=== PATIENT | female | born 1950 | race Caucasian/White ===

== ENCOUNTER 2021-04-09 09:26 | Outpatient (CLI) | payer MEDICARE, SELFPAY ==
--- NOTE | ~2021-04-09 | XR_ITS ---
EXAMINATION: XR knee LT min 4V DATE: 04/09/2021 10:37 INDICATION: Left knee pain TECHNIQUE: Four views of the left knee were obtained. COMPARISON: None. FINDINGS: Alignment is normal. No fracture or osteochondral lesion. There is tricompartmental osteoar thritis, severe in the medial compartment, moderate in the patellofemoral compartment, and mild in th e lateral compartment. No joint effusion/synovitis. Calcified atherosclerosis is noted. IMPRESSION: 1. Tricompartmental osteoarthritis without acute findings. Reviewed, dictated and finalized at location A.
== END 2021-04-09 09:27 | disposition home or self-care (01) ==
LOC: CHSIMG 09:30
PROVIDERS: PCP Family Medicine; Visit Provider Orthopaedic Surgery
DX: M25.562 Pain in left knee (principal); M17.12 Unilateral primary osteoarthritis, left knee
CPT/HCPCS: 73564

== ENCOUNTER 2021-06-28 11:18 | Outpatient (CLI) | payer MEDICARE, SELFPAY ==
--- NOTE | 2021-06-28 12:21 | ECG_ITS ---
Measurements Intervals [place] Rate: 56 P: -25 AR: 182 QRS: 6 QRSD: 108 T: 46 QT: 435 QTc: 423 Interpretive Statements SINUS BRADYCARDIA POOR R WAVE PROGRESSION, ANTERIOR LEADS BASELINE ARTIFACT- I, II, III, AVR, AVL, AVF, V1 BORDERLINE ECG Electronically Signed On 06-28-2021 12:48:54 MARKET REPORTER by Jesus Gee D.O.
[2021-06-28 12:46] LABS: Basophils Percent Auto 0.5 % (0.2-1.2); Eosinophils Percent Auto 0.7 % (0-4.4); Hematocrit 41.8 % (37.0-47.0); Hemoglobin 13.7 g/dL (12.0-15.0); Immature Granulocyte Absolute 0.01 K/mm3 (0.00-0.031); Immature Granulocyte Percent A 0.2 % (0-0.5); Lymphocytes Absolute Auto 2.71 K/mm3 (0.9-3.2); Mean Corpuscular HGB Conc 32.8 g/dl (32-36); Mean Corpuscular Hemoglobin 30.2 pg (26-34); Mean Corpuscular Volume 92.1 fl (80-100); Mean Platelet Volume 9.8 fl (7.4-10.4); Monocytes Absolute Auto 0.5 K/mm3 (0.1-0.6); Monocytes Percent Auto 8.2 % (2.6-8.5); Neutrophils Absolute Auto 2.5 K/mm3 (1.3-6.7); Neutrophils Percent Auto 43.4 % (45.5-73.1); Platelet Count Result 188 k/mm3 (150-375); Red Blood Count 4.54 M/mm3 (4.2-5.4); Red Cell Distribution Width 13.2 % (11.5-14.5); White Blood Count 5.8 K/mm3 (4.5-10.0)
[2021-06-28 12:54] LABS: Urine Cotinine NEGATIVE
[2021-06-28 12:55] LABS: Add Urine Microscopic? YES; Appearance Urine Clear (Clear); Bacteria Urine Trace /hpf; Bilirubin Urine Negative (Negative); Blood Urine Negative (Negative); Color Urine Yellow (Yellow); Glucose Urine UA Negative (Negative); Ketones Urine Negative (Negative); Leukocyte Esterase Ur Negative LEU/UL (Negative); Mucus Urine Rare /lpf; Nitrate Urine Negative (Negative); Protein Urine Negative (Negative); RBC Urine 0-2 /hpf (0-2); Specific Grav Ur 1.011 (1.001-1.035); Squamous Epithelial Cell Urine Rare /hpf (Few); Urobilinogen Urine Negative mg/dL (<2.0); WBC Urine 0-3 /hpf
[2021-06-28 12:59] LABS: Albumin Level 4.7 g/dL (3.5-5.1); Anion Gap 11 mmol/L (8-16); Blood Urea Nitrogen 15 mg/dL (7-17); Calcium 9.5 mg/dL (8.4-10.2); Carbon Dioxide 27 mmol/L (22-30); Chloride 99 mmol/L (98-107); Estimated Glomerular Filt Rate > 60; Glucose 101 mg/dL (65-110); Potassium 4.2 mmol/L (3.4-5.0); Prothrombin Time 13.1 Seconds (11.1-14.7); Sodium 137 mmol/L (137-145)
[2021-06-28 13:00] LABS: Partial Thromboplastin Time 25.4 SECONDS (22.3-36.8)
[2021-06-28 13:10] LABS: Hemoglobin A1C 6.2 % (<5.7)
== END 2021-06-28 11:19 | disposition home or self-care (01) ==
PROVIDERS: PCP Family Medicine; Visit Provider Orthopaedic Surgery
DX: Z01.818 Encounter for other preprocedural examination (principal); M17.12 Unilateral primary osteoarthritis, left knee; R00.1 Bradycardia, unspecified; Z51.81 Encounter for therapeutic drug level monitoring; Z79.899 Other long term (current) drug therapy
CPT/HCPCS: 80048; 80307; 81001; 82040; 83036; 85025; 85610; 85730; 87081; 93005

== ENCOUNTER 2021-07-31 01:16 | Day surgery (SDC) | payer MEDICARE, SELFPAY ==
[2021-06-28 11:39] VITALS: BMI 31.1
--- NOTE | 2021-06-28 11:59 | PC.NURSE ---
Report to the Outpatient Waiting Room, entrance under the green pavilion located off [facility], at time _0830 on date _07/17/21 . OR Time: __0___. - You and your visitor will be asked a series of questions to screen for COVID 19 for your protection. - A mask is required within the hospital. - Only one visitor is allowed at this time. Patient visitors will be guided where to wait when not with patient. Preoperative COVID Testing Requirements: No COVID Test needed if: (proof is required; if not received patient will have Rapid Test prior to entry) - Patient has received COVID Vaccine at least 14 days prior to procedure date or - Patient has positive COVID test result within last 90 days of surgery date. COVID Test needed if above criteria is not met If not COVID vaccinated a COVID test must be conducted within 72 hours of surgery and patient is asked to isolate self from time of testing until procedure. You will go to the [employer] [facility] Testing Site for your COVID testing. The [employer] [facility] Testing site is located at the corner of [address] [facility]. You will only be called if COVID results are positive and your surgeon may reschedule your elective surgery date. Patients may have clear liquids (water, carbonated beverages, clear teas, apple juice) until 3 hours prior to surgery with a maximum of 20 ounces. - No food from midnight until time of surgery - Infants may have breast milk until 4 hours before surgery, formula 6 hours prior to surgery. - Children will be allowed to drink immediately following surgery. If applicable, please bring a bottle or sippy cup to assist with drinking. Juice, water, soda, and popsicles are readily available. For infants on formula, please bring formula the day of surgery. Pacifiers are allowed. Take the following medications with a SIP of water the morning of surgery: _CITALOPRAM Medications to discontinue per physician __PT STATES ASPIRIN 7 DAYS PRE OP PER DR HADLEY, ALL VITAMINS AND SUPPLEMENTS 3 DAYS PRE OP Date to take last dose__ASPIRIN 07/09/21,VITAMINS 07/13/21 Please no make-up, nail georgian, hairspray, perfume, deodorant, or body powder the day of surgery. No jewelry (including any body piercings) or valuables the day of surgery, leave them at home. Please take a shower or bath the night before, or the morning of, surgery with an antibacterial soap. Wear comfortable, loose fitting clothing. Children are encouraged to wear pajamas. - Jewelry must be removed prior to entering the operating room. Rings and piercings that are not removed may be cut off. - The hospital will not accept responsibility for valuables. - Please leave all valuables, including medications, at home the day of surgery. If you are going home after surgery, a licensed mechanic driver must drive you home. - NO public transportation without another adult. - We recommend that an adult stay with you for 24 hours following discharge. - We also recommend that you do not drive, make important decision, drink alcoholic beverages, or take any drugs that were not prescribed by your health care provider for at least 24 hours after your discharge time. Follow any additional instructions given to you from your surgeon. Telephone instructions given to _PATIENT AND SPOUSE and asked if any additional questions and then verbalized understanding. Patient advised to call surgeon office or pre surgery nurse liaison [phone] if any additional questions.
[2021-06-28 12:17] VITALS: BP 136/78; PULSE 65; RESP 16; TEMP 37.1; O2SAT 97
--- NOTE | 2021-07-24 12:47 | PC.NURSE ---
Report to the Outpatient Waiting Room, entrance under the green pavilion located off [facility], at time _0900 on date __07/31/21 . OR Time: _1100 . - You will be asked a series of questions to screen for COVID 19 for your protection. - A mask is required within the hospital. - No visitors are allowed at this time. Preoperative COVID Testing Requirements: No COVID Test needed if: (proof is required; if not received patient will have Rapid Test prior to entry) - Patient has received COVID Vaccine at least 14 days prior to procedure date or - Patient has positive COVID test result within last 90 days of surgery date. COVID Test needed if above criteria is not met If not COVID vaccinated a COVID test must be conducted within 72 hours of surgery and patient is asked to isolate self from time of testing until procedure. You will go to the [employer] Testing Site for your COVID testing. The [facility] Testing site is located at the corner of [address] [facility]. You will only be called if COVID results are positive and your surgeon may reschedule your elective surgery date. Patients may have clear liquids (water, carbonated beverages, clear teas, apple juice) until 3 hours prior to surgery with a maximum of 20 ounces. - No food from midnight until time of surgery (8:00 AM) - Take the following medications with a SIP of water the morning of surgery: ___CITALOPRAM Medications to discontinue per physician ____ASPIRIN PER DR JORGENSEN, ALL VITAMINS AND SUPPLEMENTS 3 DAYS PRE OP Date to take last dose___07/27/21 Please no make-up, nail greenlandic, hairspray, perfume, deodorant, or body powder the day of surgery. No jewelry (including any body piercings) or valuables the day of surgery, leave them at home. Please take a shower or bath the night before, or the morning of, surgery with an antibacterial soap. Wear comfortable, loose fitting clothing. Children are encouraged to wear pajamas. - Jewelry must be removed prior to entering the operating room. Rings and piercings that are not removed may be cut off. - The hospital will not accept responsibility for valuables. - Please leave all valuables, including medications, at home the day of surgery. If you are going home after surgery, a licensed stage driver must drive you home. - NO public transportation without another adult. - We recommend that an adult stay with you for 24 hours following discharge. - We also recommend that you do not drive, make important decision, drink alcoholic beverages, or take any drugs that were not prescribed by your health care provider for at least 24 hours after your discharge time. For Pediatric surgeries, we recommend two adults accompany the child home (only one inside the building at this time). Follow any additional instructions given to you from your surgeon. Telephone instructions given to __PT and asked if any additional questions and then verbalized understanding. Patient advised to call surgeon office or pre surgery nurse liaison [phone] if any additional questions.
--- NOTE | 2021-07-24 12:49 | PC.NURSE ---
PT STATES NO CHANGE IN HEALTH HX SINCE LAST INTERVIEW ON 06/28/21
--- NOTE | 2021-07-29 09:48 | PM.IMHP ---
H&P: HPI History of Present Illness Date/Time: 07/29/21 09:48 Pt presents with Lt knee pain. Her pain is located at the lateral aspect of the left knee and occurs with weightbearing and the patella region. She takes Tylenol, on occasion. She has not had any previous injuries to Lt knee. She states she had a previous right knee arthroscopy. Pt underwent a Right knee arthroscopy, approx 10 yrs ago. Involved knee: bilateral Onset: gradual Location of pain: medial, lateral and anterior Pain scale (0-10): 9 Character: stabbing, throbbing and shooting Timing of pain: intermittent Exacerbated by: weight bearing, kneeling, squatting, stairs, running and rotational activities Relieved by: Tylenol, ice and rest Associated symptoms: Reports swelling, instability and stiffness History of occupational/recreational activity with repetitive motion: No History of prior knee injury: No Chief Complaint: LEFT KNEE PAIN Review of Systems Review of Systems: All systems reviewed & are unremarkable except as noted in HPI and below Eyes: Eyes: Reports no additional eye complaints ENT: Reports system reviewed and no additional complaints, except as documented Respiratory: Respiratory: Reports no additional respiratory complaints Genitourinary: Genitourinary: Reports no additional female genitourinary complaints Integumentary/Breasts: Skin/Breast: Reports system reviewed and no additional complaints, except as docu Neurologic: Reports system reviewed and no additional complaints, except as documented PMFSH Past Medical History Medical History Anxiety Arthritis Burning tongue Congestion of throat Dementia Globus sensation Left knee DJD Left knee pain PND (post-nasal drip) Right knee DJD Right knee pain Throat clearing Throat pain Family History Family History Grandparent Lung cancer Heart disease Social History Social History Additional smoking assessment comments: DENIES ANY FORM OF TOBACCO USE Alcohol intake: never Substance use: never Spiritual care concerns: No Meds Home Medications and Allergies Home Medications Medication Instructions Recorded Confirmed Type citalopram 40 mg tablet 20 mg PO DAILY 02/27/21 07/24/21 History donepezil 10 mg tablet 10 mg PO QNOON 02/27/21 07/24/21 History fluticasone propionate 50 2 spray INTRANASAL BID #16 ml 02/27/21 07/24/21 Rx mcg/actuation nasal spray,suspension rosuvastatin 40 mg tablet 40 mg PO DAILY 02/27/21 07/24/21 History aspirin [Adult Low Dose Aspirin] 81 mg PO DAILY 06/28/21 07/24/21 History cholecalciferol (vitamin D3) 50 mcg PO DAILY 06/28/21 07/24/21 History cyanocobalamin (vitamin B-12) 1,000 mcg PO DAILY 06/28/21 07/24/21 History yt-aar-rgrfi-calcium carb-K1 1 tablet PO DAILY 06/28/21 07/24/21 History [One-A-Day Women's 50 Plus] Allergies Allergy/AdvReac Type Severity Reaction Status Date / Time No Known Allergies Allergy Verified 06/28/21 11:39 Exam Extrem: Other: Exam Const Constitutional General: cooperative Nutritional Appearance: average body habitus Orientation/consciousness: patient oriented x3 Constitutional Limitations: no limitations HENMT Head: normal to inspection Ears: hearing grossly normal bilaterally General nose exam: Normal external nose present Face and sinus: normal facial exam Mouth: moist mucous membranes Teeth and gingiva: dentition normal Eyes General: appearance normal, both eyes and all related structures Pupils: Yes Equal, round and reactive pupils present EOM: EOMs intact bilaterally Neck Neck: Yes normal visual inspection Chest Chest palpation & inspection: normal inspection of the chest Resp Effort & Inspection: normal respiratory effort and able to speak in complete sentences Cardio Jugular venous distension: no JVD Neuro Cranial nerve
--- NOTE | 2021-07-30 16:14 | WPDANESEPPF ---
Anes - Initial Pre Proc Eval Procedure: Operation Date: 07/31/21 11:00 Proposed Procedures p Left Total Knee Arthroplasty - Cody Martinez MD Date/Time: 07/30/21 16:14 Surgeon: Cody Martinez MD Pre Op Diagnosis: left knee DJD Patient Data Age: 71 Gender: F Height: 1.73 m Weight: 92.9 kg Last Vital Signs Temp 37.1 C 06/28/21 12:17 Pulse 65 06/28/21 12:17 Resp 16 06/28/21 12:17 BP 136/78 06/28/21 12:17 Pulse Ox 97 06/28/21 12:17 Allergies Allergy/AdvReac Type Severity Reaction Status Date / Time No Known Allergies Allergy Verified 06/28/21 11:39 Home Medications Medication Instructions Recorded Confirmed Type citalopram 40 mg tablet 20 mg PO DAILY 02/27/21 07/24/21 History donepezil 10 mg tablet 10 mg PO QNOON 02/27/21 07/24/21 History fluticasone propionate 50 2 spray INTRANASAL BID #16 ml 02/27/21 07/24/21 Rx mcg/actuation nasal spray,suspension rosuvastatin 40 mg tablet 40 mg PO DAILY 02/27/21 07/24/21 History aspirin [Adult Low Dose Aspirin] 81 mg PO DAILY 06/28/21 07/24/21 History cholecalciferol (vitamin D3) 50 mcg PO DAILY 06/28/21 07/24/21 History cyanocobalamin (vitamin B-12) 1,000 mcg PO DAILY 06/28/21 07/24/21 History xn-odq-jexic-calcium carb-K1 1 tablet PO DAILY 06/28/21 07/24/21 History [One-A-Day Women's 50 Plus] Patient hx anesthesia problems: none Family hx anesthesia problems: none Results Review: All pre-operative results and documents have been reviewed as part of the pre-operative evaluation. [facility] Past Medical History Medical History (Updated 07/30/21 @ 16:15 by Tucker Ojeda MD) Anxiety Arthritis Burning tongue Congestion of throat Dementia Globus sensation Hyperlipidemia Left knee DJD Left knee pain Obesity PND (post-nasal drip) Right knee DJD Right knee pain Throat clearing Throat pain Family History Family History Grandparent Lung cancer Heart disease Social History Social History Additional smoking assessment comments: DENIES ANY FORM OF TOBACCO USE Alcohol intake: never Substance use: never Living arrangements: with family Spiritual care concerns: No Anes - Eval Final PreProcedure Day of Procedure 07/30/21 16:14 Patient weight: obese Heart: regular rate and rhythm Lungs: clear to auscultation and normal air movement Airway: Mallampati scale class II Neurological: alert and oriented Last oral intake: >/= 8 hours ASA classification: III Emergent: no Anesthetic plan: proceed Anesthesia type and monitoring: general LMA Results Review: All pre-operative results and documents have been reviewed as part of the pre-operative evaluation. Informed Consent: The patient's anesthetic plan and its attendant risks and benefits were discussed with the patient/family/POA. Questions were solicited and answers provided to the satisfaction of the patient/family/POA.
--- NOTE | 2021-07-30 16:15 | WPDANESPNB ---
Anes - Peripheral Nerve Block Date/Time: 07/30/21 16:15 I have discussed with the patient/family/POA the placement of a peripheral nerve block for post-operative pain management, including associated risks, benefits, complications, and side effects. Alternative methods of post-operative analgesia were detailed. Questions were solicited and answers provided to the satisfaction of the patient/family/POA. Time-Out: A pre-procedural Time-Out was completed immediately before starting the procedure and confirmed: Patient Identification, Site, Procedure, Patient Position and the Availability of Requisite Equipment. Clinical Indications: Acute post-operative pain management requested by the operative surgeon. Nerve Block Insertion Note Anes-nerve block: adductor canal left Patient position: supine Skin prep: chlorhexidine Needle: 22 gauge, stimulating, insulated echogenic needle. Needle length: 80 mm Technique: ultrasound Technique comment: in plane Injectate: bupivacaine 0.5% with epi 5 mcg/ml (30cc) Observations: tolerated well Complications: none Procedure start time:: 1210 Procedure end time:: 121
[2021-07-31] VITALS (15 sets, daily range): BP systolic 111–190; BP diastolic 48–87; PULSE 63–87; RESP 12–18; TEMP 36.3–37.4; O2SAT 87–100; BMI 31.1
--- NOTE | ~2021-07-31 | XR_ITS ---
EXAMINATION: XR knee LT 2V DATE: 07/31/2021 15:01 INDICATION: Postoperative evaluation following left total knee arthroplasty. TECHNIQUE: Anteroposterior and lateral views of the left knee were obtained. COMPARISON: 06/10/2021 FINDINGS: Left total knee arthroplasty without patellar resurfacing appears well seated and in near anatomic al ignment. No fractures identified. Expected postoperative subcutaneous and intra-articular gas. IMPRESSION: 1. Left total knee arthroplasty, negative for postoperative purposes. Reviewed, dictated and finalized at location A. DOWN FURNACE OPERATOR
--- NOTE | 2021-07-31 07:33 | WPDHPUPDATE1 ---
History and Physical Update Update Date/Time: 07/31/21 07:33 History and Physical has been reviewed, including an updated exam of the patient. There are NO changes in the patient's condition. Risks, benefits, and alternatives have been discussed and questions answered. Patient agrees to proceed with procedure.
[2021-07-31] MEDS: LACTATED RINGERS 1,000 ML 30 ML IV CONT ×2 (09:44→14:48)
[2021-07-31] MEDS: ACETAMINOPHEN 500 MG TABLET 1000 MG PO (09:44)
[2021-07-31] MEDS: TRANEXAMIC ACID 1,000MG/ISO100 1,000 MG/100 ML BAG 200 MG IVPB (09:45)
--- NOTE | 2021-07-31 10:40 | SUR.PREOP ---
pt and spouse updated on delay, approx 1 hour behind.
[2021-07-31] MEDS: ceFAZolin 2 GM/D5W 50 ML 2 GM/50 ML BAG IVPB ×2 (12:22→20:21)
[2021-07-31] MEDS: TRANEXAMIC ACID 1,000 MG/10 ML AMPUL 1000 MG IV PUSH (13:59)
--- NOTE | 2021-07-31 14:45 | W.PM.PROC2 ---
Procedure Note - Detailed Date of Procedure 07/31/21 Pre-op Diagnosis left knee DJD Post-op Diagnosis same Procedure Performed L TKA Surgeon Cody Martinez MD Anesthesia general Description of Procedure THE LEFT KNEE WAS PREPPED AND DRAPED IN THE STERILE FASHION. A MIDLINE SKIN INCISION WAS MADE. A MEDIAL PARAPATELLAR ARTHROTOMY WAS MADE. THE PATELLA WAS EVERTED. THERE WAS TRICOMPARTMENT DJD. THERE WAS MINIMAL PATELLA DJD. AN INTRAMEDULLARY BLAYNE WAS PLACED IN THE FEMUR. A DISTAL FEMORAL CUT WAS MADE IN 5 DEGREES OF VALGUS REMOVING APPROXIMATELY 11 MM OF BONE FROM THE DISTAL FEMUR. THE FEMUR WAS SIZED TO 62.5. A 62.5 FEMORAL CUTTING BLOCK WAS PLACED IN 3 DEGREES OF EXTERNAL ROTATION AND IN ALIGNMENT WITH FRANSISCO'S LINE AND THE TRANSEPICONDYLAR AXIS. ANTERIOR POSTERIOR AND CHAMFER CUTS WERE MADE. THE CUTS WERE EXCELLENT. NEXT AN INTRAMEDULLARY CUTTING GUIDE WAS PLACED IN THE TIBIA. A TRANS TIBIAL CUT WAS MADE ALONG THE LONG AXIS OF THE TIBIA. APPROXIMATELY 10 MM OF BONE WAS REMOVED FROM THE HIGH SIDE OF THE TIBIA. THE TIBIA WAS THEN PLANED TO A SMOOTH SURFACE. POSTERIOR FEMORAL OSTEOPHYTES WERE REMOVED FROM THE FEMORAL CONDYLES. A 71 TIBIAL TRIAL WAS PLACED IN ALIGNMENT WITH THE 1/3 MEDIAL ASPECT OF THE TIBIAL TUBERCLE. THEN A 62.5 FEMORAL TRIAL COMPONENT WAS PLACED. BOTH HAD EXCELLENT FITS. EVENTUALLY A 10 MM CR POLYETHYLENE TRIAL COMPONENT WAS PLACED. THE KNEE WAS TAKEN THROUGH A RANGE OF MOTION. THE KNEE CAME OUT TO FULL EXTENSION. THERE WAS NO ABNORMAL TILT TO THE PATELLA. THERE WAS GOOD A/P AND VARUS/VALGUS STABILITY. THERE WAS NO EXCESSIVE ROLL BACK WITH FLEXION. THE TRIAL COMPONENTS WERE REMOVED. THEN A 62.5 FEMORAL COMPONENT AND 71 TIBIAL COMPONENT WITH A 10 CR POLYETHYLENE COMPONENT WERE CEMENTED INTO PLACE. ONCE THE CEMENT WAS HARD THE KNEE WAS TAKEN THROUGH A ROM AGAIN AND FOUND TO BE STABLE WITH NO PATELLA TILT NO EXCESSIVE ROLL BACK WITH FLEXION AND GOOD STABILITY WITH COMPLETE AND FULL EXTENSION. THE KNEE WAS IRRIGATED WITH STERILE BETADINE AND WATER FOR ABOUT 3 MINUTES. THE BLEEDERS WERE CAUTERIZED. THE ARTHROTOMY WAS REPAIRED WITH NUMBER 1 VICRYL. THE SUB CUTANEOUS LAYER WITH 2-0 VICRYL AND THE SKIN WITH 3-0 MONOCRYL AND DERMABOND. THE WOUND WAS WASHED AND A STERILE DRESSING WAS APPLIED. PATIENT WAS EXTUBATED. Estimated Blood Loss -150.0 Pathology none sent Complications No immediate complications Condition stable Disposition PACU
[2021-07-31] MEDS: SODIUM CHLORIDE 0.9% IV 1,000 ML 125 ML IV CONT (17:18)
[2021-07-31] MEDS: SENNA/DOCUSATE SODIUM TABLET 2 TAB PO (17:18)
[2021-07-31] MEDS: FLUTICASONE PROPIONATE 0.05% NA SPR 16 GM BTL (*BKC) 2 SPRAY NASAL (17:35)
--- NOTE | 2021-07-31 17:53 | ADMGEN ---
This patient, Rosa Angel, was admitted to [facility] Surgery-5. Patient/family oriented to hospital policies and general routines including ID bracelet, bed and alarms, visiting hours, pain management, procedures, bathroom and other care routines, personal items, smoking policy, room service/diet, and visiting hours. Information on how to activate the Rapid Response Team has been discussed. Patient/Family are encouraged to report perceived risks to care and to ask questions if they do not understand what they are told or what they should do.
[2021-07-31] MEDS: FAMOTIDINE 20 MG TABLET PO (20:21)
[2021-08-01] VITALS (7 sets, daily range): BP systolic 109–136; BP diastolic 56–67; PULSE 60–70; RESP 16–18; TEMP 36.6–36.9; O2SAT 96–100
[2021-08-01] MEDS: ceFAZolin 2 GM/D5W 50 ML 2 GM/50 ML BAG IVPB ×2 (04:12→11:53)
[2021-08-01 05:39] LABS: Hematocrit 33.3 % (37.0-47.0); Hemoglobin 10.7 g/dL (12.0-15.0); Immature Granulocyte Percent A 0.5 % (0-0.5); Lymphocytes Percent Auto 11.7 % (18.3-44.2); Mean Corpuscular HGB Conc 32.1 g/dl (32-36); Mean Corpuscular Hemoglobin 29.8 pg (26-34); Mean Corpuscular Volume 92.8 fl (80-100); Monocytes Percent Auto 6.5 % (2.6-8.5); Neutrophils Percent Auto 81.2 % (45.5-73.1); Platelet Count Result 174 k/mm3 (150-375); Red Blood Count 3.59 M/mm3 (4.2-5.4); Red Cell Distribution Width 13.2 % (11.5-14.5); White Blood Count 10.8 K/mm3 (4.5-10.0)
[2021-08-01 05:40] LABS: Basophils Percent Auto 0.1 % (0.2-1.2); Immature Granulocyte Absolute 0.05 K/mm3 (0.00-0.031); Lymphocytes Absolute Auto 1.27 K/mm3 (0.9-3.2); Monocytes Absolute Auto 0.7 K/mm3 (0.1-0.6); Neutrophils Absolute Auto 8.8 K/mm3 (1.3-6.7)
[2021-08-01 05:46] LABS: Anion Gap 5 mmol/L (8-16); Blood Urea Nitrogen 18 mg/dL (7-17); Carbon Dioxide 28 mmol/L (22-30); Chloride 102 mmol/L (98-107); Estimated CRCL calculation 67 ml/min; Estimated Glomerular Filt Rate > 60; Glucose 142 mg/dL (65-110); Potassium 4.4 mmol/L (3.4-5.0); Sodium 135 mmol/L (137-145)
[2021-08-01] MEDS: oxyCODONE HCL (*CRX) 2.5 MG TAB IR 7.5 MG PO (08:49)
[2021-08-01] MEDS: polyethylene glycoL 3350 17 GM POWD.PACK PO (08:51)
[2021-08-01] MEDS: CHOLECALCIFEROL 1,000 UNITS TABLET 2000 UNITS PO (08:52)
[2021-08-01] MEDS: CITALOPRAM HYDROBROMIDE 20 MG TABLET PO (08:52)
[2021-08-01] MEDS: FAMOTIDINE 20 MG TABLET PO (08:52)
[2021-08-01] MEDS: SENNA/DOCUSATE SODIUM TABLET 2 TAB PO (08:52)
[2021-08-01] MEDS: ASPIRIN 325 MG ENTERIC TABLET 650 MG PO (08:52)
[2021-08-01] MEDS: THERAPEUTIC MULTIVITAMINS/MINERALS TAB (*BKC) 1 TABLET PO (08:53)
[2021-08-01] MEDS: ROSUVASTATIN 10 MG TABLET 40 MG PO (08:53)
[2021-08-01] MEDS: FLUTICASONE PROPIONATE 0.05% NA SPR 16 GM BTL (*BKC) 2 SPRAY NASAL (08:53)
--- NOTE | 2021-08-01 09:12 | P.PNAN_ITS ---
Anes - Prog Note Post-Op Date/Time: 08/01/21 09:12 Cardiovascular status: normal Respiratory status: normal Airway patency: baseline Mental status: baseline Post-Op hydration status: normal Vital Signs: Last Vital Signs Temp 36.8 C 08/01/21 08:36 Pulse 70 08/01/21 08:36 Resp 17 08/01/21 08:36 BP 136/59 L 08/01/21 08:36 Pulse Ox 99 08/01/21 08:36 Pain Score (VAS): 0 I/O: Intake & Output 07/31/21 08/01/21 08/01/21 23:59 07:59 15:59 Intake Total 390 550 Balance 390 550 Laboratory Tests 08/01/21 05:12 08/01/21 05:12 07/31/21 08/01/21 08/01/21 09:49 05:12 05:12 WBC 10.8 H RBC 3.59 L Hgb 10.7 L D Hct 33.3 L MCV 92.8 MCH 29.8 MCHC 32.1 RDW 13.2 Plt Count 174 MPV 10.0 Immature Gran % (Auto) 0.5 Neut % (Auto) 81.2 H Lymph % (Auto) 11.7 L [place] % (Auto) 6.5 Eos % (Auto) 0.0 Baso % (Auto) 0.1 L Lymph # (Auto) 1.27 [place] # (Auto) 0.7 H Eos # (Auto) 0.0 Baso # (Auto) 0.0 Abs Immat Gran (auto) 0.05 H Absolute Neuts (auto) 8.8 H Absolute Nucleated RBC 0.0 Nucleated RBC % 0.0 Sodium 135 L Potassium 4.4 Chloride 102 Carbon Dioxide 28 Anion Gap 5 L BUN 18 H Creatinine 0.80 Estim Creat Clear Calc 67 Estimated GFR > 60 Glucose 142 H Calcium 9.0 Blood Type O Positive Antibody Screen Negative Post-procedural complaints: none Patient Feedback: Patient satisfied with anesthetic care.
[2021-08-01] MEDS: CYANOCOBALAMIN 1,000 MCG TABLET 1000 MCG PO (09:52)
[2021-08-01] MEDS: DONEPEZIL HCL 10 MG TABLET PO (11:53)
--- NOTE | 2021-08-01 12:24 | PM.PNORT ---
Progress Note: A&P Assessment and Plan (1) S/P total knee arthroplasty: Qualifiers: Laterality: left Qualified Code(s): Z96.652 - Presence of left artificial knee joint Code(s): Z96.659 - Presence of unspecified artificial knee joint Status: Acute Assessment and Plan: POD #1: Left TKA Continue PT/OT. WBAT. Walker. HIGH FALL RISK. Continue pain control. Ice machine use reviewed. SCDs. Incentive Spirometry. DVT prophylaxis with Aspirin. Change dressing prior to discharge. Dispo: Home with Home Health Today Time Spent With Patient Time with patient: less than 15 minutes Subjective Subjective Date/Time Seen: 08/01/ 12:24 Post Op day: 1 Principal diagnosis: Left Knee DJD Interval history: POD #1: Left TKA No new complaints. Feeling well. Hopeful for discharge home. Review of Systems Review of Systems: All systems reviewed & are unremarkable except as noted in HPI and below Constitutional: Constitutional: Denies fever(s) and Denies headache(s) ENT: Denies headache(s) Cardiovascular: Cardiovascular: Denies chest pain, Denies diaphoresis, Denies palpitations and Denies dyspnea Respiratory: Respiratory: Denies dyspnea Gastrointestinal: Gastrointestinal: Denies abdominal pain, Denies constipation, Denies nausea and Denies vomiting Genitourinary: Genitourinary: Reports nocturia and Denies dysuria Musculoskeletal: Musculoskeletal: Reports arthralgias (Left Knee ), Reports joint swelling (Left Knee ) and Reports limited range of motion (ROM limited due to recent surgical intervention LEFT Knee ) Neurologic: Denies headache(s) Endocrine: Endocrine: Denies palpitations Exam Const: General: comfortable and no acute distress Resp: Effort & Inspection: normal respiratory effort Cardio: Rate: regular rate Rhythm: regular rhythm GI: GI Palp: Yes Soft to palpation, No Tenderness to palpation present (GI) and No Guarding due to palpation present (GI) Skin: Wounds: wounds noted Other: Incision c/d/i. No surrounding redness/warmth. No hematoma. Mild ecchymosis. No wound dehiscence Neuro: Cognition (Neuro): normal cognition Other: NV intact aside from block. Moves toes. Sensation intact to light touch. +ankle dorsiflexion/plantarflexion. Extrem: Left lower extremity: normal to inspection, normal capillary refill and knee Details: tenderness (diffuse ), swelling (moderate consistent to recent surgery ), abnormal ROM (limited due to recent surgery ) and ecchymosis (as expected with recent surgery. NO hematoma. ) Other: Incision left TKA dressing c/d/i. No hematoma. No signs of infection. No wound dehiscence. Psych: Mental Status: mental status grossly normal Objective Data Vital Signs Vital Signs: Vital Signs - 24 hr 07/31/21 14:48 07/31/21 15:00 07/31/21 15:15 Temperature 36.5 C Pulse Rate 87 73 63 Respiratory Rate 12 16 12 Blood Pressure 190/87 H 172/67 H 143/69 H Pulse Oximetry 100 100 100 07/31/21 15:24 07/31/21 15:30 07/31/21 15:45 Temperature Pulse Rate 67 64 Respiratory Rate 14 14 Blood Pressure 112/53 L 129/60 Pulse Oximetry 87 L 93 97 07/31/21 15:59 07/31/21 16:02 07/31/21 16:17 Temperature 37.1 C 37.1 C Pulse Rate 66 63 67 Respiratory Rate 14 16 18 Blood Pressure 144/65 H 127/62 127/62 Pulse Oximetry 96 97 99 07/31/21 16:47 07/31/21 17:47 07/31/21 20:00 Temperature 37.0 C 36.3 C L 36.6 C Pulse Rate 67 63 74 Respiratory Rate 16 17 18 Blood Pressure 128/77 111/48 L 131/81 Pulse Oximetry 98 95 95 07/31/21 21:47 07/31/21 22:00 08/01/21 00:00 Temperature 36.6 C Pulse Rate 64 Respiratory Rate 18 18 18 Blood Pressure 125/67 Pulse Oximetry 96 08/01/21 01:47 08/01/21 04:00 08/01/21 05:47 Temperature 36.7 C Pulse Rate 60 Respiratory Rate 18 18 18 Blood Pressure 109/56 L Pulse Oximetry 97 08/01/21 06:00 08/01/21 08:36 Temperature 36.8 C Pulse Rate 70 Respiratory Rate 18 17 Blood Pressure 136/
--- NOTE | 2021-08-01 12:38 | PM.DS ---
DS: Admitting Diagnosis Discharge Date 08/01/21 Admitting Diagnosis Left Knee DJD DS: Discharge Diagnosis Discharge Diagnosis (1) S/P total knee arthroplasty: Qualifiers: Laterality: left Qualified Code(s): Z96.652 - Presence of left artificial knee joint Code(s): Z96.659 - Presence of unspecified artificial knee joint Status: Acute Assessment and Plan: POD #1: Left TKA Continue PT/OT. WBAT. Walker. HIGH FALL RISK. Continue pain control. Ice machine use reviewed. SCDs. Incentive Spirometry. DVT prophylaxis with Aspirin. Change dressing prior to discharge. Dispo: Home with Home Health Today DS: Summary Hospital Course Reason for hospitalization: Left TKA Hospital Course: 71 year old female admitted s/p left TKA for postoperative medical management, pain control and mobilization with PT/OT. She progressed well on POD #1. No acute events. Pain well controlled. She was cleared to go home with home health. Discharge instructions reviewed. Educational packet dispensed. Follow up arranged. Status at Discharge Functional status at discharge: uses cane/walker Overall status at discharge: patient is progressing back to baseline Time Spent with Patient Time attestation: Total time spent providing and/or coordinating discharge services: Time spent: Less than 30 minutes Exam Const: General: comfortable and no acute distress Resp: Effort & Inspection: normal respiratory effort Cardio: Rate: regular rate Rhythm: regular rhythm Skin: Wounds: wounds noted Other: Incision c/d/i. No surrounding redness/warmth. No hematoma. Mild ecchymosis. No wound dehiscence Neuro: Cognition (Neuro): normal cognition Other: NV intact aside from block. Moves toes. Sensation intact to light touch. +ankle dorsiflexion/plantarflexion. Extrem: Left lower extremity: normal to inspection, normal capillary refill and knee Details: tenderness (diffuse ), swelling (moderate consistent to recent surgery ), abnormal ROM (limited due to recent surgery ) and ecchymosis (as expected with recent surgery. NO hematoma. ) Other: Incision left TKA dressing c/d/i. No hematoma. No signs of infection. No wound dehiscence. Psych: Mental Status: mental status grossly normal DS: Data Data Completed and Pending Labs on day of discharge: Labs from last 24 hours 08/01/21 08/01/21 05:12 05:12 WBC 10.8 H RBC 3.59 L Hgb 10.7 L D Hct 33.3 L MCV 92.8 MCH 29.8 MCHC 32.1 RDW 13.2 Plt Count 174 MPV 10.0 Immature Gran % (Auto) 0.5 Neut % (Auto) 81.2 H Lymph % (Auto) 11.7 L Zapata % (Auto) 6.5 Eos % (Auto) 0.0 Baso % (Auto) 0.1 L Lymph # (Auto) 1.27 Zapata # (Auto) 0.7 H Eos # (Auto) 0.0 Baso # (Auto) 0.0 Abs Immat Gran (auto) 0.05 H Absolute Neuts (auto) 8.8 H Absolute Nucleated RBC 0.0 Nucleated RBC % 0.0 Sodium 135 L Potassium 4.4 Chloride 102 Carbon Dioxide 28 Anion Gap 5 L BUN 18 H Creatinine 0.80 Estim Creat Clear Calc 67 Estimated GFR > 60 Glucose 142 H Calcium 9.0 Discharge Plan Discharge Patient Disposition: Home Health Service Discharge Instructions: Post Op Total Knee Replacement Instructions Dr. Cody Martinez [phone] ? Your dressing will be changed prior to your discharge. You will be sent home with one additional dressing to be changed on post op day 7 by the home health RN. Your monroe will be removed on the 14th day after surgery and steri-strips will be placed. Please practice good hand hygiene and do not touch your incision in order to prevent infection. ? You may shower with your dressing but do not submerge in a bath tub. ? Do not drive or operate machinery until you are released by Dr. Martinez. ? Do not walk without a walker for any reason until you are released by Dr. Martinez. ? Continue to use your ice machine. Please use a towel or pillow case to protect your skin before applying your ice machine. ? Do NOT
--- NOTE | 2021-08-01 13:05 | PCPTNOTE ---
Patient declined PT at this time due to anticipated discharge. Patient reported she feels she is good and will do her exercises when she gets home.
== END 2021-08-01 13:40 | disposition home health service (06) ==
LOC: ANHSURGERY 08:45 → ANHSUROVER 16:06
PROVIDERS: PCP Family Medicine; Visit Provider Orthopaedic Surgery
PROC: (CPT 27447; principal; 2021-07-31 11:00)
DX: M17.12 Unilateral primary osteoarthritis, left knee (principal); Z79.82 Long term (current) use of aspirin; G89.18 Other acute postprocedural pain; F41.9 Anxiety disorder, unspecified; M19.90 Unspecified osteoarthritis, unspecified site; F03.90 Unspecified dementia, unspecified severity, without behavioral disturbance, psychotic disturbance, mood disturbance, and anxiety; E78.5 Hyperlipidemia, unspecified; E66.9 Obesity, unspecified; Z68.31 Body mass index [BMI] 31.0-31.9, adult
CPT/HCPCS: 27447; 64447; 36415; 73560; 80048; 85025; 86850; 86900; 86901; 97110; 97161; 97165; A9270; C1713; C1776; J0171; J0690; J1100; J1170; J1885; J2270; J2405; J2704; J2795; J3010; J7030; J7120

== ENCOUNTER 2021-09-03 14:35 | Outpatient (RCR) | payer MEDICARE, SELFPAY ==
--- NOTE | 2021-09-03 15:59 | PTOPEVAL ---
Thank you for referring Rosa Angel to [facility].? The patient is scheduled to be seen for therapy? ____x/week for ___ weeks. Please review, sign, date and return this plan of care CARLITO. I agree with and certify that the following plan of care is medically necessary. Referring Physician Date Admitting Provider: Attending Provider: Cody Martinez MD Referring Provider: *PT Outpatient Evaluation Start: 09/03/21 14:45 Freq: Status: Active Protocol: Document 09/03/21 14:57 [facility] (Rec: 09/03/21 15:58 [facility] [id number]) Therapy Assessment Status Assessment Status Assessment Status Evaluation Outpatient Past Medical History Neurological History Hx Dementia Yes: DX ~ ONE YEAR AGO Cardiovascular History Hx Hypercholesterolemia Yes Respiratory History Hx Respiratory Disorders No Significant History Gastrointestinal History Hx Gastrointestinal Disorders No Significant History Genitourinary History Hx Genitourinary Disorders No Significant History Musculoskeletal History Hx Arthritis Yes: GENERALIZED Hx Orthopedic Surgery Yes: RT KNEE SCOPE Hx Other Musculoskeletal Disorders Yes: OA LT KNEE Hematological History Hx Hematological Disorders No Significant History Endocrine History Hx Endocrine Disorders No Significant History HEENT History Hx Other HEENT Disorders Yes: WEARS GLASSES Integumentary History Hx Skin Disorders No Significant History Reproductive History Hx Post Menopausal Yes Psychosocial History Hx Anxiety Yes Pain History History of Any Previous or Ongoing No Significant History Instance of Pain Anesthesia History Hx Anesthesia Reactions No Significant History Evaluation Information Problem Diagnosis s/p L TKA Onset 07/31/21 Additional Evaluation Detail LEFS = 16% functionally declined Subjective Information patient reports she had the L Query Text:As Reported By Patient/ knee replaced on 08/01/21. she Family reports she had home health after surgery. she reports she the knee is feeling pretty good so far. she reports she is not having many issues at this time. she reports the doctor would like her to attend therapy to improve her knee mobility and strength. she reports she had a CPM after surgery. home health therapy was in home 2x weekly for about 4 weeks
--- NOTE | 2021-09-26 11:27 | PTOPEVAL ---
Thank you for referring Rosa Angel to [facility].? The patient is scheduled to be seen for therapy? ____x/week for ___ weeks. Please review, sign, date and return this plan of care CARLITO. I agree with and certify that the following plan of care is medically necessary. Referring Physician Date Admitting Provider: Attending Provider: Cody Martinez MD Referring Provider: *PT Outpatient Evaluation Start: 09/03/21 14:45 Freq: Status: Active Protocol: Document 09/26/21 10:35 [facility] (Rec: 09/26/21 11:27 [facility] [id number]) Therapy Assessment Status Assessment Status Assessment Status Progress Outpatient Past Medical History Neurological History Hx Dementia Yes: DX ~ ONE YEAR AGO Cardiovascular History Hx Hypercholesterolemia Yes Respiratory History Hx Respiratory Disorders No Significant History Gastrointestinal History Hx Gastrointestinal Disorders No Significant History Genitourinary History Hx Genitourinary Disorders No Significant History Musculoskeletal History Hx Arthritis Yes: GENERALIZED Hx Orthopedic Surgery Yes: RT KNEE SCOPE Hx Other Musculoskeletal Disorders Yes: OA LT KNEE Hematological History Hx Hematological Disorders No Significant History Endocrine History Hx Endocrine Disorders No Significant History HEENT History Hx Other HEENT Disorders Yes: WEARS GLASSES Integumentary History Hx Skin Disorders No Significant History Reproductive History Hx Post Menopausal Yes Psychosocial History Hx Anxiety Yes Pain History History of Any Previous or Ongoing No Significant History Instance of Pain Anesthesia History Hx Anesthesia Reactions No Significant History Evaluation Information Problem Diagnosis s/p L TKA Onset 07/31/21 Subjective Information patient reports she feels Query Text:As Reported By Patient/ alright this date. she Family reports she has consistent 4/ 10 pain in the L knee. she reports she is typically fatigued and a little sore with therapy. Pain Assessment Timing of Pain Assessment Timing of Pain Assessment Assessment Pain Scale Pain Scale Used Numeric (1 - 10) Self Report Pain Assessment Left Knee(s) Reported Pain Level 4 Pain Score Pain Score 4: Self Report Interventions Used Interventions Used By Clinicians Activity or ADL's,Compression Pump,Education,Elevation, Exercise,Rest Lower Extremity Range of Motion General Lower Extremity Range of Motion Gross Lower Extremity Range of Motion 0 degrees arom L k
== END 2021-10-03 14:34 | disposition home or self-care (01) ==
LOC: CHSPT 14:35
PROVIDERS: PCP Family Medicine; Visit Provider Orthopaedic Surgery
DX: Z96.652 Presence of left artificial knee joint (principal)
CPT/HCPCS: 97016; 97110; 97161; 97530

== ENCOUNTER 2023-12-29 11:33 | Outpatient (CLI) | payer MEDICARE, SELFPAY ==
[2023-12-29 18:08] LABS: Basophils Percent Auto 0.5 % (0.2-1.2); Eosinophils Absolute Auto 0.1 K/mm3 (0-0.3); Eosinophils Percent Auto 1.5 % (0-4.4); Hemoglobin 13.8 g/dL (12.0-15.0); Immature Granulocyte Absolute 0.01 K/mm3 (0.00-0.031); Immature Granulocyte Percent A 0.2 % (0-0.5); Lymphocytes Percent Auto 40.7 % (18.3-44.2); Mean Corpuscular HGB Conc 32.1 g/dl (32-36); Mean Corpuscular Hemoglobin 30.4 pg (26-34); Mean Corpuscular Volume 94.7 fl (80-100); Monocytes Absolute Auto 0.4 K/mm3 (0.1-0.6); Monocytes Percent Auto 6.8 % (2.6-8.5); Neutrophils Absolute Auto 3.1 K/mm3 (1.3-6.7); Neutrophils Percent Auto 50.3 % (45.5-73.1); Platelet Count Result 230 k/mm3 (150-375); Red Blood Count 4.54 M/mm3 (4.2-5.4); White Blood Count 6.2 K/mm3 (4.5-10.0)
[2023-12-29 18:41] LABS: Vitamin D 25 Hydroxy 46.5 ng/mL
[2023-12-29 20:52] LABS: Alanine Aminotransferase 23 U/L (6-35); Albumin Level 4.4 g/dL (3.5-5.1); Alkaline Phosphatase 68 U/L (38-126); Anion Gap 9 mmol/L (4-12); Aspartate Amino Transferase 56 U/L (14-36); Bilirubin,Total 0.4 mg/dL (0.2-1.3); Blood Urea Nitrogen 15 mg/dL (7-17); Calcium 9.8 mg/dL (8.4-10.2); Carbon Dioxide 32 mmol/L (22-30); Chloride 97 mmol/L (98-107); Cholesterol 138 mg/dL (0-200); Estimated Glomerular Filt Rate > 60; Glucose 147 mg/dL (65-110); HDL Direct 51 mg/dL; Potassium 5.1 mmol/L (3.4-5.0); Sodium 138 mmol/L (137-145); Triglycerides 217 mg/dL (<150)
[2023-12-29 21:05] LABS: LDL Cholesterol Direct 71 mg/dL
[2023-12-29 22:02] LABS: Folic Acid > 20.0 ng/mL (2.76->20); Vitamin B12 > 1000.0 pg/mL (239-931)
== END 2023-12-29 11:34 | disposition home or self-care (01) ==
PROVIDERS: PCP Nurse Practitioner Adult Health; Visit Provider Nurse Practitioner Adult Health
DX: E78.5 Hyperlipidemia, unspecified (principal); E55.9 Vitamin D deficiency, unspecified; F02.80 Dementia in other diseases classified elsewhere, unspecified severity, without behavioral disturbance, psychotic disturbance, mood disturbance, and anxiety; G30.9 Alzheimer's disease, unspecified
CPT/HCPCS: 36415; 80053; 80061; 82306; 82607; 82746; 85025

== ENCOUNTER 2024-11-05 13:45 | Emergency (ER) | payer MEDICARE, SELFPAY ==
[2024-11-05] VITALS (9 sets, daily range): BP systolic 118–194; BP diastolic 77–95; PULSE 57–96; RESP 11–20; TEMP 36.6; O2SAT 96–100
--- NOTE | ~2024-11-05 | CT_ITS ---
CT brain wo con Ordering provider: David Macedo MD History: 74 years Female with . Fall, Head injury w/ contusions below Rt. orbit . Comparison: None. Technique: CT of the head without contrast. Radiation reduction technique utilized.The dose-length pr oduct was 605.33 mGy-cm. FINDINGS: BRAIN PARENCHYMA AND CSF SPACES: Mild leukoaraiosis and diffuse cortical atrophy. Mild atheromatous d isease. No midline shift, mass effect or hemorrhage. The brain parenchyma and CSF spaces are otherwi se normal. VISUALIZED PARANASAL SINUSES: Well aerated. MASTOIDS: Well aerated. BONES: The bones appear intact. SOFT TISSUES: Visualized nasopharynx is normal. Superficial soft tissues are normal. IMPRESSION: No acute intracranial findings. Reviewed, dictated and finalized at location A.
--- NOTE | ~2024-11-05 | CT_ITS ---
CT facial & cervical spine wo Ordering provider: David Macedo MD History: . Fall, Head injury w/ contusions below Rt. orbit . Comparison: None. Technique: Thin slice axial CT of the facial bones was performed without contrast. Coronal and sagit gen reformatted images were also obtained. . Automated exposure control and iterative reconstruction technique were employed. The dose-length product was 480.56 mGy-cm. FINDINGS: PARANASAL SINUSES: Well aerated. BONES: No facial fracture including no nasal bone fracture. ORBITS AND SUPERFICIAL SOFT TISSUES: The optic globes and orbits are normal. Minimal soft tissue swel ling inferior to the right orbit. Otherwise, The superficial soft tissues are normal. VISUALIZED MASTOIDS: Well aerated. LIMITED VISUALIZED BRAIN PARENCHYMA: Normal. IMPRESSION: No facial fracture. CT facial & cervical spine wo Ordering provider: David Macedo MD History: . Fall, Head injury w/ contusions below Rt. orbit . Comparison: None. Technique: CT of the cervical spine was performed without contrast. Sagittal and coronal reformatted images were also obtained and reviewed. Automated exposure control and iterative reconstruction lele hnique were employed. The dose-length product was 480.56 mGy-cm. FINDINGS: VERTEBRAE: Minimal retrolisthesis seen at the level of C5-C6 and C6-C7. No subluxation or acute fract ure. The occipital condyles are intact. Degenerative changes of the spine. DISC SPACES: Narrowing of the disc C5-C6 and C6-C7. Multilevel facet joint disease. Multilevel uncove rtebral joint osteoarthritic changes. Multilevel intervertebral foraminal narrowing. PARASPINOUS SOFT TISSUES: Bilateral carotid atherosclerotic changes. IMPRESSION: No acute osseous abnormality cervical spine. Multilevel degenerative disc disease. Reviewed, dictated and finalized at location A. IMPRESSION: No facial fracture. CT facial & cervical spine wo Ordering provider: David Macedo MD History: . Fall, Head injury w/ contusions below Rt. orbit . Comparison: None. Technique: CT of the cervical spine was performed without contrast. Sagittal a nd coronal reformatted images were also obtained and reviewed. Automated expos ure control and iterative reconstruction technique were employed. The dose-magalie th product was 480.56 mGy-cm. FINDINGS: VERTEBRAE: Minimal retrolisthesis seen at the level of C5-C6 and C6-C7. No subl uxation or acute fracture. The occipital condyles are intact. Degenerative himanshu nges of the spine. DISC SPACES: Narrowing of the disc C5-C6 and C6-C7. Multilevel facet joint dise ase. Multilevel uncovertebral joint osteoarthritic changes. Multilevel interver tebral foraminal narrowing. PARASPINOUS SOFT TISSUES: Bilateral carotid atherosclerotic changes.
--- OUTSIDE RECORDS SUMMARY | 2024-11-05 13:48 | XMS_ITS | Encounter Summary ---
Author Organization [facility] Address [address] [place] [address] Care Team Providers Care Accounts Payable Coordinator Name Role Phone Idalmis Pitts MD Primary Care Provider [phone] Encounter Details Date Type Department Care Team (Late st Contact Info) Description 11/28/2002 Outpatient Historical [facility] Internal Medicine - [place] [address] [place] [phone] [place] [address] [facility] [place] [address] Social History Tobacco Use Types Packs/Day Years Used Date Smoking Tobacco: Never Assessed Comments Unknown Sex and Gender Information Value Date Recorded Sex Assigned at Not on file 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
--- OUTSIDE RECORDS SUMMARY | 2024-11-05 13:48 | XMS_ITS | Encounter Summary ---
Author Organization [facility] Address [address] [place] [address] Care Team Providers Care Work From Home Name Role Phone Idalmis Pitts MD Primary Care Provider [phone] Encounter Details Date Type Department Care Team (Late st Contact Info) Description 11/28/2002 Outpatient Historical [facility] Internal Medicine - [place] [address] [place] [phone] [place] [address] [place] [facility] [place] [address] Social History Tobacco Use Types Packs/Day Years Used Date Smoking Tobacco: Never Assessed Comments Unknown Sex and Gender Information Value Date Recorded Sex Assigned at Not on file 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
--- OUTSIDE RECORDS SUMMARY | 2024-11-05 13:48 | XMS_ITS | Encounter Summary ---
Author Organization [facility] Address [address] [place] [address] Care Team Providers Care Client Manager Large Law Name Role Phone Idalmis Pitts MD Primary Care Provider [phone] Encounter Details Date Type Department Care Team (Late st Contact Info) Description 05/15/2004 Outpatient Historical [facility] Internal Medicine - [place] [address] [place] [phone] [place] [address] [place] [address] Social History Tobacco Use Types Packs/Day Years Used Date Smoking Tobacco: Never Assessed Comments Unknown Sex and Gender Information Value Date Recorded Sex Assigned at Not on file 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
--- OUTSIDE RECORDS SUMMARY | 2024-11-05 13:48 | XMS_ITS | Encounter Summary ---
Author Organization [facility] Address [address] [facility] [place] [address] Care Team Providers Care Jewelry Bench Molder Name Role Phone Idalmis Pitts MD Primary Care Provider [phone] Encounter Details Date Type Department Care Team (Late st Contact Info) Description 12/26/2002 Outpatient Historical [facility] Judd Carreno MD [address] [place] [address] INT HEMORRHOID W/O COMPL (Primary Dx) Social History Tobacco Use Types Packs/Day Years Used Date Smoking Tobacco: Never Assessed Comments Unknown Sex and Gender Information Value Date Recorded Sex Assigned at Not on file Legal Sex Female 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
--- OUTSIDE RECORDS SUMMARY | 2024-11-05 13:48 | XMS_ITS | Encounter Summary ---
Author Organization [facility] Address [address] [place] [address] Care Team Providers Care Bell Captain Name Role Phone Idalmis Pitts MD Primary Care Provider Encounter Details Date Type Department Care Team (Late st Contact Info) Description 05/15/2004 Outpatient Historical [facility] Internal Medicine - [place] [address] [place] [phone] [place] [address] [facility] [place] [address] Social History Tobacco Use Types Packs/Day Years Used Date Smoking Tobacco: Never Assessed Comments Unknown Sex and Gender Information Value Date Recorded Sex Assigned at Not on file Legal Sex Female 5:00 AM DISPUTE SPECIALIST Gender Identity Not on file Sexual Orientation Not on file documented as of this encounter Plan of Treatment Not on file documented as of this encounter Visit Diagnoses Not on filedocumented in this encounter Care Teams Bell Captain Relationship Specialty [place] [address] [place] [address] PCP - General 10/20/07 05/21/10 documented as of this encounter
--- OUTSIDE RECORDS SUMMARY | 2024-11-05 13:48 | XMS_ITS | Encounter Summary ---
Author Organization [facility] Address [address] [place] [address] Care Team Providers Care Child & Adolescent Psychiatrist Name Role Phone Idalmis Pitts MD Primary Care Provider [phone] Encounter Details Date Type Department Care Team (Late st Contact Info) Description 05/15/2004 Outpatient Historical [facility] Internal Medicine - [place] [address] [place] [phone] [place] [address] [place] [address] Social History Tobacco Use Types Packs/Day Years Used Date Smoking Tobacco: Never Assessed Comments Unknown Sex and Gender Information Value Date Recorded Sex Assigned at Not on file Legal Sex Female 5:00 AM CUSTOMER RELATIONS REPRESENTATIVE Gender Identity Not on file Sexual Orientation Not on file documented as of this encounter Plan of Treatment Not on file documented as of this encounter Visit Diagnoses Not on filedocumented in this encounter Care Teams Child & Adolescent Psychiatrist Relationship Specialty Start [place] [address] [place] [address] PCP - General 10/20/07 05/21/10 documented as of this encounter
--- OUTSIDE RECORDS SUMMARY | 2024-11-05 13:48 | XMS_ITS | Clinical Summary ---
Author Organization [facility] Address [address] [place] [address] Care Team Providers Care Circular Distributor Name Role Phone Unavailable Primary Care Provider Unavailabl e Allergies Active Allergy Reactions Criticality Noted Date Comments No Known Allergies 11/28/2002 Active Problems Problem Noted Date Diagnosed Date Routine general medical exam ination at a health care facility 05/15/2004 Allergic rhinitis, cause unspecified 05/15/2004 Hemorrhage of rectum and anus 11/28/2002 Reflux esophagitis 11/28/2002 Other and unspecified hyperlipidemia 11/28/2002 Abnormal weight gain 11/28/2002 Abdominal or pelvic swelling , mass, or lump, other specified site 11/28/2002 Goiter, unspecified 11/28/2002 Social History Tobacco Use Types Packs/Day Years Used Date Smoking Tobacco: Never Assessed Comments Unknown Sex and Gender Information Value Date Recorded Sex Assigned at Not on file Legal Sex Female 5:00 AM BIOCHEMICAL DEVELOPMENT ENGINEER Gender Identity Not on file Sexual Orientation Not on file Plan of Treatment Health Maintenance Due Date Last Done Comments DTAP/TDAP/TD VACCINES (1 - Tdap) 1969 BREAST CANCER SCREENING 1990 COLORECTAL SCREENING 1995 FIT-DNA Q 3 years 1995 Flex Sig/CT Colonography Q 5 years 1995 PNEUMOCOCCAL VACCINE 50+ YEARS (1 of 1 - PCV) 03/15/20 00 ZOSTER VACCINE (1 of 2) 2000 Colorectal Cancer Screening 05/15/2005 FIT/FOBT Q 1 year 05/15/2005 05/15/2004 OSTEOPOROSIS SCREENING 2015 INFLUENZA VACCINE (#1) 2024 RSV VACCINE (60+ or ) (1 - 1-dose 75+ series) 2025 Insurance [facility] OPEN ACCESS HMO
--- OUTSIDE RECORDS SUMMARY | 2024-11-05 13:48 | XMS_ITS | Continuity of Care Document ---
Author Organization [facility] Address [address] [facility] [address] [place] [address] Phone Care Team Providers Care Solutions Development Analyst Name Role Phone Gonzales Mcarthur MD Unavailable Unavailable Allergies, Adverse Reactions, Alerts Substance Reaction Status Criticality No Known Allergies Active No Inform ation Medications Medication Instructions Dosage Effective Dates (start - stop) Status Comments Baby Aspirin 81 mg Chewable Tab chew 1 tablet (81MG) by oral route every day - Active lovastatin 10 mg Tab take 1 tablet (10MG ) by oral route every day with the evening meal 10 MG - Active Procedures Procedure Date OFFICE/OUTPATIENT VISIT, EST REFRACTION OFFICE/OUTPATIENT VISIT, EST REFRACTION OFFICE/OUTPATIENT VISIT, EST REFRACTION OFFICE/OUTPATIENT VISIT, EST REMOVE EYELID LESION OFFICE/OUTPATIENT VISIT, EST EYE EXAM & TREATMENT OFFICE/OUTPATIENT VISIT, EST Advance Directives Directive Yes / No Effective Date File Name No Information Encounters Encounter Description Practice Location Reason(s) For Visit Diagnoses Date Provider Providers Copied on Encounter OFFICE/OUTPA TIENT VISIT, EST [facility], [address], [place], [place], [id number], tel:[phone] [facility] Office scratched glasses (chief complaint) Age-related nuclear cataract, bilateralTear film insufficiency of bilateral lacrimal glandsOther vitreous opacities, bilateral 6 Lyubovjosefa Rolon. [address] [place] [address], [address], [place], [place], [id number], [place]. tel:[phone] Referring Provider: Gonzales Morales, [address] [place] [address] [address], [place], [address]. tel:[phone] OFFICE/OUTPA TIENT VISIT, [facility], [address] [place] [address], [place], [place], [id number], [place] tel:[phone] [facility] Office Cataract check (chief complaint) Senile nuclear sclerosisHype rmetropiaLid LesionTear film insufficiency , unspecified 5 No Information OFFICE/OUTPA TIENT VISIT, [facility], [address] [place] [address], [place], [place], [id number], [place] tel:[phone] [facility] Office Cysts of eyelidsHyperm etropiaSenile nuclear sclerosis 4 No Information OFFICE/OUTPA TIENT VISIT, [facility], [address] [place] [address], [place], [place], [id number], [place] tel:[phone] [facility] Office Hypermetropia Senile nuclear sclerosis 3 No Information [facility], [address] [place] [address], [place], [place], [id number], [place] tel:[phone] [facility] Office Cysts of eyelidsCysts of eyelids 2 Lyubov Rolon. [address] [place] [address], [address], [place], [place], [id number], [place]. tel:[phone] Referring Provider: Gonzales Morales, [address] [place] [address] [address], [place], [address]. tel:[phone] OFFICE/OUTPA TIENT VISIT, [facility], [address] [place] [address], [place], [place], [id number], [place] tel:[phone] [facility] Office Cysts of eyelidsHyperm etropia 2 No Information [facility], [address], [place], [place], [id number], [place] tel:[phone] [facility] Office No Information 1 No Information OFFICE/OUTPA TIENT VISIT, EST [facility], [address], [place], [place], [address], [place] tel:[phone] [facility] Office No Information 0 No Information Referring Provider: Gonzales Morales, [address], [place], [address]. tel:[phone] Family History Family Member Type Diagnosis Age At Onset Father Problem (finding) degenerative disorder o f macula Payers Payer name Insurance type Covered democrat ID Authoriza tirose(s) AVILA CI [id number] Social History Type Description Quantity Date Captured Comments Alcohol Use Details Unknown Caffeine Use Details Unknown Tobacco Use Status No Information Smoking Status No Information Sex Female Chief Complaint And Reason For Visit From encounter dated '12/14/2015 09:20'. scratched glasses (chief complaint). Description: Patient complains that her glasses are now at least a couple of years old and the lenses are beginning to get scratched, especially on the left one. Patient is interested in getting new glasses. Other than this she hasn't been having problems with her eyes. Reason For Referral Reason For Referral No Information History Of Present Illness Encounter Date Complaint History Of Prese nt Illness scratched glasses Patient compla ins that her glasses are now at least a couple of years old and the lenses are beginning to get scratched, especially on the left one. Patient is interested in getting new glasses. Other than this she hasn't been having problems with her eyes. Cataract check The 64 year old female presents for evaluation of Cataract check in the right > left. It started about 1 year(s) ago. The symptom is constant. The condition is stable. Patient wanting new glasses rx Functional Status Date Functional Assessmen t No Information Instructions Date Instruction Additional Infor fernando RTO 1 yr Complete Exam with ABEL R elated to Age-related nuclear cataract, bilateral Impression/Plan - Di scussed diagnosis in detail with patient. No treatment is required at this time. Patient instructed to call if condition gets worse. Educational materials provided:Flashers/floaters. Related to Other vitreous opacities, bilateral Impression/Plan - Th ere is no evidence of permanent changes to the cornea. Explained condition does not have a cure and will need artificial tears for maintenance. Related to Tear film insufficiency of bilateral lacrimal glands Impression/Plan - Di scussed diagnosis in detail with patient. New glasses Rx was given today. Related to Age-related nuclear cataract, bilateral Follow up - RTO 1 yr Complete Exam with ABEL Related to Age-related nuclear cataract, bilateral RTO in 1 year for complete exam Related to Senile nuclear sclerosis Impression/Plan - St able Patient instructed to use artificial tears as needed. Will continue to observe condition and or symptoms. Related to Tear film insufficiency, unspecified Impression/Plan - Ne w glasses Rx was given today. Related to Hypermetropia Impression/Plan - St able. Will continue to observe. Related to Lid Lesion Impression/Plan - No treatment currently recommended. The patient will monitor vision changes and contact us with any decrease in vision. 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 Discussed treatment options with patient. No treatment is required at this time. Will continue to observe condition and or symptoms. Call if VA worsens. Related to Senile nuclear sclerosis Hypermetropia OU - N ew glasses Rx was given today. Related to Hypermetropia - Return in 1 year w darwin Nino MD for Complete Exam. Related to Hypermetropia Lid Lesion, RLL - Removed by EPHRAIM Related to Lid Lesion Cataract, Nuclear Sc lerosis OU - Cataracts account for the patient's complaints. No treatment currently recommended. The patient will monitor vision changes and contact us with any decrease in vision. Related to Cataract, Nuclear Sclerosis Hyperopia.Presbyopia , OU - Pt seeing fine. No new glasses Rx given today. Related to Hyperopia - Return in 1 year w darwin Nino MD for Complete Exam. Related to Hyperopia Lid Lesion, RLL - Re moved lesion from RLL. Sent speciman for pathology. Related to Lid Lesion Hyperopia.Presbyopia , OU - Pt seeing fine. No new glasses Rx given today. Related to Hyperopia - Return in 1 year f or Dilated Exam, with Niranjan Nino MD. Related to Lid Lesion Lid Lesion, RLL, Pastor wing - Since growing, recommend removal/rule out cancer. Patient elects to have surgery. Related to Lid Lesion Assessments Type Assessment Date assessment Age-related nuclear cataract, bi lateral impression Age-related nuclear cataract, bi lateral: H25.13. OU. impression Tear film insufficie ncy of bilateral lacrimal glands: H04.123. OU. assessment Tear film insufficiency of bilat eral lacrimal glands impression Other vitreous opacities, bilate ral: H43.393. OU. assessment Other vitreous opacities, bilate ral Patient Care Teams Name Effective Dates (start - stop) Status Members No Information
--- OUTSIDE RECORDS SUMMARY | 2024-11-05 13:48 | XMS_ITS | Encounter Summary ---
Author Organization [facility] Address [address] [place] [address] Care Team Providers Care Business Support Administrator Name Role Phone Idalmis Pitts MD Primary Care Provider [phone] Encounter Details Date Type Department Care Team (Late st Contact Info) Description 05/15/2004 Outpatient Historical [facility] Internal Medicine - [place] [address] [place] [address] [place] [address] [place] [facility] [place] [address] Social History Tobacco Use Types Packs/Day Years Used Date Smoking Tobacco: Never Assessed Comments Unknown Sex and Gender Information Value Date Recorded Sex Assigned at Not on file 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
--- NOTE | 2024-11-05 13:54 | ECG_ITS ---
Test Date: 2024-11-05 14:27:00 Measurements Intervals Marilla Rate: 58 P: -34 MD: 168 QRS: -3 QRSD: 104 T: 51 QT: 434 QTc: 427 Interpretive Statements SINUS BRADYCARDIA LOW QRS VOLTAGE IN PRECORDIAL LEADS [QRS DEFLECTION < 1.0 mV IN CHEST LEADS] NONSPECIFIC T-WAVE ABNORMALITY No previous ECG available for comparison Electronically Signed On 11-05-2024 17:19:32 CDT by George Farley M.D.
--- OUTSIDE RECORDS SUMMARY | 2024-11-05 14:19 | XMS_ITS | Encounter Summary ---
Author Organization [facility] Address [address] [place] [address] Care Team Providers Care Video Production Assistant Name Role Phone Idalmis Pitts MD Primary Care Provider [phone] Encounter Details Date Type Department Care Team (Late st Contact Info) Description 05/15/2004 Outpatient Historical [facility] Internal Medicine - [place] [address] [place] [address] [place] [address] [place] [address] Social History Tobacco Use Types Packs/Day Years Used Date Smoking Tobacco: Never Assessed Comments Unknown Sex and Gender Information Value Date Recorded Sex Assigned at Not on file 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
--- OUTSIDE RECORDS SUMMARY | 2024-11-05 14:19 | XMS_ITS | Encounter Summary ---
Author Organization [facility] Address [address] [place] [address] Care Team Providers Care Roofer Gypsum Name Role Phone Idalmis Pitts MD Primary Care Provider [phone] Encounter Details Date Type Department Care Team (Late st Contact Info) Description 05/15/2004 Outpatient Historical [facility] Internal Medicine - [place] [address] [place] [phone] [place] [address] [place] [address] Social History Tobacco Use Types Packs/Day Years Used Date Smoking Tobacco: Never Assessed Comments Unknown Sex and Gender Information Value Date Recorded Sex Assigned at Not on file 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
--- OUTSIDE RECORDS SUMMARY | 2024-11-05 14:19 | XMS_ITS | Encounter Summary ---
Author Organization [facility] Address [address] [place] [address] Care Team Providers Care Real Estate Leasing Manager Name Role Phone Idalmis Pitts MD Primary Care Provider Encounter Details Date Type Department Care Team (Late st Contact Info) Description 05/15/2004 Outpatient Historical [facility] Internal Medicine - [place] [address] [place] [phone] [place] [address] [facility] [place] [address] Social History Tobacco Use Types Packs/Day Years Used Date Smoking Tobacco: Never Assessed Comments Unknown Sex and Gender Information Value Date Recorded Sex Assigned at Not on file 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
--- OUTSIDE RECORDS SUMMARY | 2024-11-05 14:19 | XMS_ITS | Clinical Summary ---
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
--- OUTSIDE RECORDS SUMMARY | 2024-11-05 14:19 | XMS_ITS | Encounter Summary ---
Author Organization [facility] Address [address] [place] [address] Care Team Providers Care Supervisor Gear Repair Name Role Phone Idalmis Pitts MD Primary Care Provider [phone] Encounter Details Date Type Department Care Team (Late st Contact Info) Description 11/28/2002 Outpatient Historical [facility] Internal Medicine - [place] [address] [place] [phone] [place] [address] [facility] [place] [address] Social History Tobacco Use Types Packs/Day Years Used Date Smoking Tobacco: Never Assessed Comments Unknown Sex and Gender Information Value Date Recorded Sex Assigned at Not on file 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
--- OUTSIDE RECORDS SUMMARY | 2024-11-05 14:19 | XMS_ITS | Encounter Summary ---
Author Organization [facility] Address [address] [place] [address] Care Team Providers Care Rn New Graduate Name Role Phone Idalmis Pitts MD Primary Care Provider [phone] Encounter Details Date Type Department Care Team (Late st Contact Info) Description 05/15/2004 Outpatient Historical [facility] Internal Medicine - [place] [address] [place] [phone] [place] [address] [facility] [place] [address] Social History Tobacco Use Types Packs/Day Years Used Date Smoking Tobacco: Never Assessed Comments Unknown Sex and Gender Information Value Date Recorded Sex Assigned at Not on file 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
--- OUTSIDE RECORDS SUMMARY | 2024-11-05 14:19 | XMS_ITS | Encounter Summary ---
Author Organization [facility] Address [address] [place] [address] Care Team Providers Care Body And Fender Worker Name Role Phone Idalmis Pitts MD Primary Care Provider [phone] Encounter Details Date Type Department Care Team (Late st Contact Info) Description 11/28/2002 Outpatient Historical [facility] Internal Medicine - [place] [address] [place] [phone] [place] [address] [facility] [place] [address] Social History Tobacco Use Types Packs/Day Years Used Date Smoking Tobacco: Never Assessed Comments Unknown Sex and Gender Information Value Date Recorded Sex Assigned at Not on file 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
--- OUTSIDE RECORDS SUMMARY | 2024-11-05 14:19 | XMS_ITS | Encounter Summary ---
Author Organization [facility] Address [address] [facility] [place] [address] Care Team Providers Care Tarring Machine Operator Name Role Phone Idalmis Pitts MD Primary Care Provider [phone] Encounter Details Date Type Department Care Team (Late st Contact Info) Description 12/26/2002 Outpatient Historical [facility] Judd Carreno MD [address] [facility] [place] [address] INT HEMORRHOID W/O COMPL (Primary Dx) Social History Tobacco Use Types Packs/Day Years Used Date Smoking Tobacco: Never Assessed Comments Unknown Sex and Gender Information Value Date Recorded Sex Assigned at Not on file Legal Sex Female 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
--- OUTSIDE RECORDS SUMMARY | 2024-11-05 14:19 | XMS_ITS | Continuity of Care Document ---
Author Organization [facility] Address [address] [facility] [address] [place] [address] Phone Care Team Providers Care Dental Laboratory Assistant Name Role Phone Gonzales Mcarthur MD Unavailable [...] OFFICE/OUTPA TIENT VISIT, EST [facility], [address], [place], [place], [id number], tel:[phone] [facility] Office scratched glasses (chief complaint) Age-related nuclear cataract, bilateralTear film insufficiency of bilateral lacrimal glandsOther vitreous opacities, bilateral 6 Lyubovjosefa Rolon. [address] [place] [address], [address], [place], [place], [id number], [place]. tel:[phone] Referring Provider: Gonzales Morales, [address] [place] [address] [address], [place], [address]. tel:[phone] OFFICE/OUTPA TIENT VISIT, [facility], [address] [place] [address], [place], [place], [id number], [place] tel:[phone] [facility] Office Cataract check (chief complaint) Senile nuclear sclerosisHype rmetropiaLid LesionTear film insufficiency , unspecified 5 No Information OFFICE/OUTPA TIENT VISIT, [facility], [address] [place] [address], [place], [place], [id number], [place] tel:[phone] [facility] Office Cysts of eyelidsHyperm etropiaSenile nuclear sclerosis 4 No Information OFFICE/OUTPA TIENT VISIT, [facility], [address] [place] [address], [place], [place], [id number], [place] tel:[phone] [facility] Office Hypermetropia Senile nuclear sclerosis 3 No Information [facility], [address] [place] [address], [place], [place], [id number], [place] tel:[phone] [facility] Office Cysts of eyelidsCysts of eyelids 2 Lyubov Rooln. [address] [place] [address], [address], [place], [place], [id number], [place]. tel:[phone] Referring Provider: Gonzales Morales, [address] [place] [address] [address], [place], [address]. tel:[phone] OFFICE/OUTPA TIENT VISIT, [facility], [address] [place] [address], [place], [id number], [place] tel:[phone] [facility] Office Cysts of eyelidsHyperm etropia 2 No Information [facility], [address], [place], [place], [id number], [place] tel:[phone] [facility] Office No Information 1 No Information OFFICE/OUTPA TIENT VISIT, EST [facility], [address], [place], [place], [address], [place] tel:[phone] [facility] Office No Information 0 No Information Referring Provider: Gonzales Morlaes, [address], [place], [address]. tel:[phone] Family History Family Member Type Diagnosis Age At Onset Father Problem (finding) degenerative disorder o f macula Payers Payer name Insurance type Covered democrat ID Authoriza tirose(s) AVILA CI [id number] Social History Type Description Quantity Date Captured [...] R elated to Age-related nuclear cataract, bilateral Follow up - RTO 1 yr Complete Exam with ABEL Related to Age-related nuclear cataract, bilateral Impression/Plan - Di scussed diagnosis in detail with patient. New glasses Rx was given today. Related to Age-related nuclear cataract, bilateral Impression/Plan - Th ere is no [...] provided:Flashers/floaters. Related to Other vitreous opacities, bilateral RTO in 1 year for complete exam Related to Senile nuclear sclerosis Follow up - RTO in 1 year for complete exam Related to Senile nuclear sclerosis Impression/Plan - No treatment currently recommended. The patient will monitor vision changes and contact us with any decrease in vision. Related to Senile nuclear sclerosis Impression/Plan - Ne w glasses Rx was given today. Related to Hypermetropia Impression/Plan - St able. Will continue to observe. Related to Lid Lesion Impression/Plan - St able Patient instructed to use artificial tears as needed. Will continue to observe condition and or symptoms. Related to Tear film insufficiency, unspecified Lid Lesion, RLL - Removed by JEIan Related to Lid Lesion - Return in 1 year w darwin Nino MD for Complete Exam. Related to Hypermetropia Hypermetropia OU - N ew glasses Rx was given today. Related to Hypermetropia Senile nuclear scler osis OU - Discussed diagnosis in detail with patient. Discussed treatment options with patient. No treatment is required at this time. Will continue to observe condition and or symptoms. Call if [facility] worsens. Related to Senile nuclear sclerosis - Return in 1 year w darwin Nino MD for Complete Exam. Related to Hyperopia Hyperopia.Presbyopia , OU - Pt seeing fine. No new glasses Rx given today. Related to Hyperopia Cataract, Nuclear Sc lerosis OU - Cataracts account for the patient's complaints. No treatment currently recommended. The patient will monitor vision changes and contact us with any decrease in vision. Related to Cataract, Nuclear Sclerosis Lid Lesion, RLL - Re moved lesion from RLL. Sent speciman for pathology. Related to Lid Lesion Lid Lesion, RLL, Pastor wing - Since growing, recommend removal/rule out cancer. Patient elects to have surgery. Related to Lid Lesion - Return in 1 year f or Dilated Exam, with Niranjan Nino MD. Related to Lid Lesion Hyperopia.Presbyopia , OU - Pt seeing fine. No new glasses Rx given today. Related to Hyperopia Assessments Type Assessment Date assessment Age-related nuclear [...]
[2024-11-05] MEDS: TETANUS,DIPHTHERIA,AC PERTUSSIS ADULT 0.5 ML (ADACEL) IM (14:34)
[2024-11-05] MEDS: ACETAMINOPHEN 325 MG TABLET 650 MG PO (15:07)
[2024-11-05 15:11] LABS: Basophils Absolute Auto 0.02 K/mm3 (0.00-0.10); Basophils Percent Auto 0.4 % (0.0-1.0); Eosinophils Absolute Auto 0.09 K/mm3 (0.02-0.50); Eosinophils Percent Auto 1.7 % (1.0-6.0); Hemoglobin 12.9 g/dL (11.7-13.8); Immature Granulocyte Absolute 0.01 K/mm3 (0.00-0.00); Immature Granulocyte Percent A 0.2 % (0.0-0.0); Lymphocytes Absolute Auto 2.26 K/mm3 (1.10-4.50); Lymphocytes Percent Auto 42.1 % (18.0-42.0); Mean Corpuscular HGB Conc 32.3 g/dL (32-36); Mean Corpuscular Hemoglobin 29.2 pg (27.0-31.0); Mean Corpuscular Volume 90.5 fL (78.0-102.0); Mean Platelet Volume 9.6 fl (9.2-11.8); Monocytes Absolute Auto 0.45 K/mm3 (0.10-0.90); Monocytes Percent Auto 8.4 % (2.0-11.0); Neutrophils Absolute Auto 2.54 K/mm3 (1.70-7.20); Neutrophils Percent Auto 47.2 % (50.0-70.0); Platelet Count Result 196 K/mm3 (150-420); Red Blood Count 4.42 M/mm3 (4.20-5.40); Red Cell Distribution Width 12.4 % (11.6-14.4); White Blood Count 5.4 K/mm3 (4.8-10.8)
[2024-11-05 15:23] LABS: Alanine Aminotransferase 17 U/L (6-35); Albumin Level 4.1 g/dL (3.5-5.1); Alkaline Phosphatase 69 U/L (38-126); Anion Gap 3 mmol/L (4-12); Aspartate Amino Transferase 30 U/L (14-36); Bilirubin,Total 0.4 mg/dL (0.2-1.3); Blood Urea Nitrogen 12 mg/dL (7-17); Carbon Dioxide 28 mmol/L (22-30); Chloride 102 mmol/L (98-107); Estimated CRCL calculation 68 ml/min; Estimated Glomerular Filt Rate > 60; Glucose 102 mg/dL (65-110); Osmolality Calculated 275 mOsm/kg (285-295); Potassium 4.4 mmol/L (3.4-5.0); Sodium 133 mmol/L (137-145); Total Protein 6.5 g/dL (6.3-8.2)
[2024-11-05 15:55] LABS: Add Urine Microscopic? YES; Appearance Urine Clear (Clear); Bilirubin Urine Negative (Negative); Blood Urine Negative (Negative); Color Urine Light Yellow (Yellow); Glucose Urine UA Negative (Negative); Ketones Urine Negative (Negative); Leukocyte Esterase Ur 2+ LEU/UL (Negative); Nitrate Urine Negative (Negative); Protein Urine Negative (Negative); Specific Grav Ur <= 1.005 (1.010-1.020); Urobilinogen Urine 0.2 mg/dL (0.2-1.0); pH Urine 6.5 (5.0-8.0)
[2024-11-05 16:14] LABS: WBC Urine 0-3 /hpf (0-3)
--- NOTE | 2024-11-05 16:15 | ED_ITS ---
HPI - Fall General Chief Complaint: Fall Stated Complaint: fall, facial lac. Time Seen by Provider: 11/05/24 13:54 Source: patient, family and EMS Mode of arrival: EMS History of Present Illness HPI Narrative: this is a 74-year-old female with a recent fall after she apparently tripped causing injury to the right facial area with abrasions no loss of consciousness no headache no blurry vision no neck pain or neck stiffness no other injuries noted. There is no fever chills no nausea vomiting. Onset (ago): hour(s) Fall from: standing Fall witnessed: yes, by family Place fall occurred: home Related Data Home Medications ?Medication ?Instructions ?Recorded ?Confirmed ?Last Taken ?Type donepezil 10 mg tablet 10 mg PO QNOON 02/27/21 07/18/24 07/30/21 History aspirin 81 mg tablet 81 mg PO DAILY 06/28/21 07/18/24 07/24/21 History bupropion HCl 150 mg 24 hr tablet, 150 mg PO QAM 12/29/23 07/18/24 Unknown History extended release cholecalciferol (vitamin D3) 25 25 mcg PO DAILY 12/29/23 07/18/24 Unknown History mcg (1,000 unit) tablet (Vitamin D3) propranolol 80 mg capsule,24 80 mg PO DAILY 12/29/23 07/18/24 Unknown History hr,extended release Allergies Allergy/AdvReac Type Severity Reaction Status Date / Time No Known Allergies Allergy Verified 07/18/24 13:50 Review of Systems 2 Review of Systems: All systems reviewed & are unremarkable except as noted in HPI and below PMFSH Surgical History Surgical History Knee joint replacement status S/P total knee arthroplasty Family History Family History Grandparent Lung cancer Heart disease Father Hypertension Heart disease Cancer Vertigo Mother Alzheimer disease Social History Social History Smoking status: Never smoker Second hand tobacco smoke exposure: No Additional smoking assessment comments: DENIES ANY FORM OF TOBACCO USE Alcohol intake: never Substance use: never Do You Feel Safe in your Home?: Yes Lack of Transportation: No Lack of Food: Never True Current Housing: I Have Housing Concerned About Future Housing: No Difficulty Paying Gas/Electric Bills: No Difficulty Paying for Meds: No Currently Unemployed: No Education: High School Diploma/GED Difficulty w/ Childcare or Family Care: No Living arrangements: with family Occupation/Education: retired Spiritual care concerns: No Agree to blood products: Yes Exam 2 Const: General: healthy appearing and no acute distress Nutritional Appearance: well nourished Orientation/consciousness: patient oriented x3 Limitations: no limitations HENMT: Head: normal to inspection Other: abrasion right upper facial area Eyes: Conjunctivae: conjunctivae normal Pupils: Equal, round and reactive pupils present EOM: EOMs intact bilaterally Direct Ophthalmoscopy: no photophobia Neck: Neck: normal visual inspection, no lymphadenopathy and no meningeal signs Chest: Chest palpation & inspection: normal inspection of the chest Resp: Effort & Inspection: normal respiratory effort Auscultation: clear to auscultation bilaterally Cardio: Rate: regular rate Rhythm: regular rhythm GI: GI Palp: Yes Soft to palpation Auscultation: normal bowel sounds : General: Yes bladder normal to palpation Urinary Catheter: Urinary Catheter: patent and draining Back/Spine/Pelvis: Back: no CVA tenderness Skin: Wounds: wounds noted Neuro: General: patient oriented x3, moves all extremities, no meningeal signs and no focal motor deficits Cranial nerves: Yes Nystagmus not present S peech: normal speech Gait exam (Neuro): Normal gait present Extrem: General: normal to inspection, no clubbing, cyanosis or edema and no pedal edema Course Course Emergency Course: patient had CT scan of the brain CT of cervical spine and facial bones which showed no acute abnormalities. Patient had blood work performed and urinalysis, urinalysis shows 2+ leukocytes and will send antibiotics the patient's local pharmacy. Vital Signs Vital signs: Vital Signs Temperature 36.6 C 11/05/24 13:50 Pulse Rate 78 11/05/24 13:50 Respiratory Rate 20 11/05/24 13:50 Blood Pressure 178/95 H 11/05/24 13:50 Pulse Oximetry 97 11/05/24 13:50 Oxygen Delivery Room Air 11/05/24 13:50 Temperature 36.6 C 11/05/24 13:54 Pulse Rate 60 11/05/24 15:00 Respiratory Rate 16 11/05/24 15:00 Blood Pressure 194/87 H 11/05/24 14:46 Pulse Oximetry 100 11/05/24 15:00 Oxygen Delivery Room Air 11/05/24 13:54 MDM - Fall Lab Data 11/05/24 14:41 11/05/24 14:41 Labs: Lab Results 11/05/24 Range/Units 14:41 WBC 5.4 (4.8-10.8) K/mm3 RBC 4.42 (4.20-5.40) M/mm3 Hgb 12.9 (11.7-13.8) g/dL Hct 40.0 (35.0-42.0) % MCV 90.5 (78.0-102.0) fL MCH 29.2 (27.0-31.0) pg MCHC 32.3 (32-36) g/dL RDW 12.4 (11.6-14.4) % Plt Count 196 (150-420) K/mm3 MPV 9.6 (9.2-11.8) fl Immature Gran % (Auto) 0.2 H (0.0-0.0) % Neut % (Auto) 47.2 L (50.0-70.0) % Lymph % (Auto) 42.1 H (18.0-42.0) % Starr % (Auto) 8.4 (2.0-11.0) % Eos % (Auto) 1.7 (1.0-6.0) % Baso % (Auto) 0.4 (0.0-1.0) % Lymph # (Auto) 2.26 (1.10-4.50) K/mm3 Starr # (Auto) 0.45 (0.10-0.90) K/mm3 Eos # (Auto) 0.09 (0.02-0.50) K/mm3 Baso # (Auto) 0.02 (0.00-0.10) K/mm3 Abs Immat Gran (auto) 0.01 H (0.00-0.00) K/mm3 Absolute Neuts (auto) 2.54 (1.70-7.20) K/mm3 Absolute Nucleated RBC 0.00 (0.00-0.00) K/mm3 Nucleated RBC % 0.0 (0-0.0) % Sodium 133 L (137-145) mmol/L Potassium 4.4 (3.4-5.0) mmol/L Chloride 102 (98-107) mmol/L Carbon Dioxide 28 (22-30) mmol/L Anion Gap 3 L (4-12) mmol/L BUN 12 (7-17) mg/dL Creatinine 0.76 (0.7-1.0) mg/dL Estim Creat Clear Calc 68 ml/min Estimated GFR > 60 (59 - ) Glucose 102 (65-110) mg/dL Calculated Osmolality 275 L (285-295) mOsm/kg Calcium 9.0 (8.4-10.2) mg/dL Total Bilirubin 0.4 (0.2-1.3) mg/dL AST 30 (14-36) U/L ALT 17 (6-35) U/L Alkaline Phosphatase 69 (38-126) U/L Total Protein 6.5 (6.3-8.2) g/dL Albumin 4.1 (3.5-5.1) g/dL Urine Color Light yellow (Yellow) Urine Appearance Clear (Clear) Urine pH 6.5 (5.0-8.0) Ur Specific [place] <= 1.005 L (1.010-1.020) Urine Protein Negative (Negative) Urine Glucose (UA) Negative (Negative) Urine Ketones Negative (Negative) Ur Blood (Man) Negative (Negative) Urine Nitrate Negative (Negative) Urine Bilirubin Negative (Negative) Urine Urobilinogen 0.2 (0.2-1.0) mg/dL Leukocyte Esterase Rfl 2+ H (Negative) VELASQUEZ/UL Urine WBC 0-3 (0-3) /hpf Critical Care Time Critical Care Time Critical Care Time: No Discharge Plan Discharge Clinical Impression: Fall, UTI (urinary tract infection), HTN (hypertension) Patient Disposition: Home Condition: Stable Instructions: Antibiotic Form, Urinary Tract Infection in Women (ED), Abrasion (ED) Additional Instructions: advised to take medication as prescribed and follow with primary care physician if symptoms persist or worsen. Patient Language: Egyptian Prescriptions: New nitrofurantoin monohyd/m-cryst [Macrobid] 100 mg capsule 100 mg PO Q12H 7 Days Qty: 14 0RF Rx Instructions: must administer with a meal/food No Action donepezil 10 mg tablet 10 mg PO QNOON rosuvastatin 40 mg tablet 40 mg PO DAILY Qty: 90 3RF bupropion HCl 150 mg tablet extended release 24 hr 150 mg PO QAM cholecalciferol (vitamin D3) [Vitamin D3] 25 mcg (1,000 unit) tablet 25 mcg PO DAILY propranolol 80 mg capsule,extended release 24hr 80 mg PO DAILY aspirin 81 mg Tablet 81 mg PO DAILY citalopram 40 mg tablet See Rx Instructions .ROUTE .COMPLEX Qty: 90 3RF Dose Instruction: TAKE 1 TABLET BY MOUTH EVERY DAY Rx Instructions: TAKE 1 TABLET BY MOUTH EVERY DAY Follow-up/Referrals: Risa Barker APRN [Primary Care Provider] -
[2024-11-05] MEDS: NITROFURANTOIN MONOHYD MACROCR 100 MG CAP PO (16:26)
--- NOTE | 2024-11-08 12:47 | PC.NURSE ---
final urine culture report reviewed. mixed genital dionne isolated. these superficial bacteria are not indicative of a uti. no change in plan of care
== END 2024-11-05 16:36 | disposition home or self-care (01) ==
PROVIDERS: Emergency Provider Emergency Medicine; PCP Nurse Practitioner Adult Health
DX: N39.0 Urinary tract infection, site not specified (principal); S09.93XA Unspecified injury of face, initial encounter; I10 Essential (primary) hypertension; W01.0XXA Fall on same level from slipping, tripping and stumbling without subsequent striking against object, initial encounter; Z23 Encounter for immunization
CPT/HCPCS: 36415; 70450; 70486; 72125; 80053; 81001; 85025; 87086; 90715; 93005; 96372; 99284; A9270

== ENCOUNTER 2025-02-21 09:16 | Outpatient (CLI) | payer MEDICARE, SELFPAY ==
--- NOTE | ~2025-02-21 | US_ITS ---
EXAMINATION: US carotid duplex BI DATE: 02/21/2025 11:08 INDICATION: Status post cancer treatment TECHNIQUE: Grayscale, color Doppler, and pulsed Doppler images of the cervical carotid arteries were obtained. The degree of vessel stenosis is placed in one of the following categories: normal, <50%, 50-69%, >=70% but less than near- occlusion, near-occlusion, or total occlusion. Note that percent stenosis relative to normal distal artery lumen diameter is indirectly measured from velocity measurements as described by Patricio, et al. Radiology 2003; 229:340-346. Notes: Normal: Peak systolic velocity <125 centimeters/sec and no plaque <50%. Peak systolic velocity <125 (EDV <40; ICA/CCA PSV ratio <2.0; used these factors only a tandem lesions or low cardiac output or contralateral disease) 50-69 %: PSV 125-230 (EDV 40-100; ratio 2-4) >= 70% but less than near occlusion: PSV greater than 230 (EDV > 100; ratio> 4.0) Near Occlusion: PSV that is variable; markedly narrowed lumen Occlusion: Absent flow on color/spectral Doppler and no lumen on carlos scale. COMPARISON: None. FINDINGS: RIGHT: The right common carotid artery (CCA) peak systolic velocity (PSV) is 55 cm/s. The right internal carotid artery (ICA) PSV is 60 cm/s. The right ICA end- diastolic velocity (EDV) is 19 cm/s. The right ICA/CCA PSV ratio is 1.1. The external carotid artery (ECA) PSV is 61 cm/s. There is antegrade flow in the right vertebral artery. LEFT: The left CCA PSV is 45 cm/s. The left ICA PSV is 60 cm/s. The left ICA EDV is 18 cm/s. The left ICA/CCA PSV ratio is 1.3. The ECA PSV is 47 cm/s. There is antegrade flow in the left vertebral artery. IMPRESSION: 1. Less than 50% stenosis in the right internal carotid artery by sonographic criteria. 2. Less than 50% stenosis in the left internal carotid artery by sonographic criteria. Reviewed, dictated and finalized at location O. IMPRESSION: 1. Less than 50% stenosis in the right internal carotid artery by sonographic malia payne. 2. Less than 50% stenosis in the left internal carotid artery by sonographic yulissa zhu.
--- NOTE | ~2025-02-21 | MR_ITS ---
EXAMINATION: MR brain/brain stem wo/w con DATE: 02/21/2025 10:07 INDICATION: Multiple sclerosis. TECHNIQUE: Magnetic resonance imaging (MRI) of the brain and brainstem was performed without and with 20 mL MultiHance intravenous contrast. COMPARISON: Head CT 11/05/2024 FINDINGS: There is no acute ischemic infarct or intracranial hemorrhage. There are scattered foci of increased T2-weighted signal intensity in the cerebral white matter with a periventricular predominance with confluence in the periventricular regions. There are foci of increased T2-weighted signal int ensity in the evelyn. There is no abnormal contrast enhancement. The ventricles are normal in size. The orbits are normal. The paranasal sinuses are clear. The mastoid air cells are normal. IMPRESSION: 1. Mild nonspecific cerebral white matter disease and pontine disease, which may represent chronic small vessel ischemic disease and/or multiple sclerosis. Reviewed, dictated and finalized at location E. IMPRESSION: 1. Mild nonspecific cerebral white matter disease and pontine disease, which ma y represent chronic small vessel ischemic disease and/or multiple sclerosis.
--- OUTSIDE RECORDS SUMMARY | 2025-02-21 10:10 | XMS_ITS | Clinical Summary ---
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
--- OUTSIDE RECORDS SUMMARY | 2025-02-21 10:10 | XMS_ITS | Encounter Summary ---
Author Organization [facility] Address [address] [place] [address] Care Team Providers Care Highway Construction Inspector Name Role Phone Idalmis Pitts MD Primary Care Provider [phone] Encounter Details Date Type Department Care Team (Late st Contact Info) Description 05/15/2004 Outpatient Historical [facility] Internal Medicine - [place] [address] [place] [phone] [place] [address] [facility] [place] [address] Social History Tobacco Use Types Packs/Day Years Used Date Smoking Tobacco: Never Assessed Comments Unknown Sex and Gender Information Value Date Recorded Sex Assigned at Not on file 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
--- OUTSIDE RECORDS SUMMARY | 2025-02-21 10:10 | XMS_ITS | Encounter Summary ---
Author Organization [facility] Address [address] [place] [address] Care Team Providers Care Trimming Caser Name Role Phone Idalmis Pitts MD Primary Care Provider [phone] Encounter Details Date Type Department Care Team (Late st Contact Info) Description 11/28/2002 Outpatient Historical [facility] Internal Medicine - [place] [address] [place] [phone] [place] [address] [place] [facility] [place] [address] Social History Tobacco Use Types Packs/Day Years Used Date Smoking Tobacco: Never Assessed Comments Unknown Sex and Gender Information Value Date Recorded Sex Assigned at Not on file 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
--- OUTSIDE RECORDS SUMMARY | 2025-02-21 10:10 | XMS_ITS | Encounter Summary ---
Author Organization [facility] Address [address] [place] [address] Care Team Providers Care Health Data Analyst Name Role Phone Idalmis Pitts MD Primary Care Provider [phone] Encounter Details Date Type Department Care Team (Late st Contact Info) Description 05/15/2004 Outpatient Historical [facility] Internal Medicine - [place] [address] [place] [phone] [place] [address] [facility] [place] [address] Social History Tobacco Use Types Packs/Day Years Used Date Smoking Tobacco: Never Assessed Comments Unknown Sex and Gender Information Value Date Recorded Sex Assigned at Not on file 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
--- OUTSIDE RECORDS SUMMARY | 2025-02-21 10:10 | XMS_ITS | Encounter Summary ---
Author Organization [facility] Address [address] [place] [address] Care Team Providers Care Web Applications Administrator Name Role Phone Idalmis Pitts MD Primary Care Provider [phone] Encounter Details Date Type Department Care Team (Late st Contact Info) Description 12/26/2002 Outpatient Historical [facility] Judd Carreno MD [address] [facility] [address] [address] [place] [address] INT HEMORRHOID W/O COMPL (Primary Dx) Social History Tobacco Use Types Packs/Day Years Used Date Smoking Tobacco: Never Assessed Comments Unknown Sex and Gender Information Value Date Recorded Sex Assigned at Not on file 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
--- OUTSIDE RECORDS SUMMARY | 2025-02-21 10:10 | XMS_ITS | Encounter Summary ---
Author Organization [facility] Address [address] [place] [address] Care Team Providers Care Process Helper Name Role Phone Idalmis Pitts MD Primary Care Provider [phone] Encounter Details Date Type Department Care Team (Late st Contact Info) Description 11/28/2002 Outpatient Historical [facility] Internal Medicine - [place] [address] [place] [phone] [place] [address] [place] [place] [facility] [place] [address] Social History Tobacco Use Types Packs/Day Years Used Date Smoking Tobacco: Never Assessed Comments Unknown Sex and Gender Information Value Date Recorded Sex Assigned at Not on file 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
--- OUTSIDE RECORDS SUMMARY | 2025-02-21 10:10 | XMS_ITS | Encounter Summary ---
Author Organization [facility] Address [address] [place] [address] Care Team Providers Care Storm Chaser Name Role Phone Idalmis Pitts MD Primary Care Provider [phone] Encounter Details Date Type Department Care Team (Late st Contact Info) Description 05/15/2004 Outpatient Historical [facility] Internal Medicine - [place] [address] [place] [phone] [place] [address] [place] [address] Social History Tobacco Use Types Packs/Day Years Used Date Smoking Tobacco: Never Assessed Comments Unknown Sex and Gender Information Value Date Recorded Sex Assigned at Not on file 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
--- OUTSIDE RECORDS SUMMARY | 2025-02-21 10:10 | XMS_ITS | Encounter Summary ---
Author Organization [facility] Address [address] [place] [address] Care Team Providers Care Line Installer Trolley Name Role Phone Idalmis Pitts MD Primary Care Provider [phone] Encounter Details Date Type Department Care Team (Late st Contact Info) Description 05/15/2004 Outpatient Historical [facility] Internal Medicine - [place] [address] [place] [phone] [place] [address] [facility] [address] Social History Tobacco Use Types Packs/Day Years Used Date Smoking Tobacco: Never Assessed Comments Unknown Sex and Gender Information Value Date Recorded Sex Assigned at Not on file 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
== END 2025-02-21 09:17 | disposition home or self-care (01) ==
PROVIDERS: PCP Nurse Practitioner Adult Health; Visit Provider Psychiatry & Neurology Neurology
DX: G35 Multiple sclerosis (principal); Z09 Encounter for follow-up examination after completed treatment for conditions other than malignant neoplasm; R90.82 White matter disease, unspecified
CPT/HCPCS: 70553; 93880; A9577

== ENCOUNTER 2025-02-24 11:55 | Outpatient (CLI) | payer MEDICARE, SELFPAY ==
--- NOTE | 2025-02-24 12:18 | ECHO_ITS ---
Patient Info Name: Rosa Angel Age: 74 years : 1950 Gender: Female Ht: 67 in Wt: 180 lbs BSA: 1.98 m2 HR: 52 bpm BP: 114 / 91 mmHg Technical Quality: Fair Exam Date: 02/24/2025 2:53 PM Patient Status: O Admit Date: 02/24/2025 Exam Type: CA echo doppler w bubble study Complete two-dimensional, color flow and Doppler transthoracic echocardiogram is performed. Complete two-dimensional, color flow and Doppler transthoracic echocardiogram is performed with agitated saline. Inspector Precision: Kristyn Carreno Attending Provider: Sanjay Desai Contrast/Agitated Saline Contrast/Ag. Saline: Agitated Saline Amount: 12.00 ml IV Access Condition: patent with no signs of infiltration New IV Access: Left Site Condition: IV removed Summary 1. Complete two-dimensional, color flow and Doppler transthoracic echocardiogram is performed. 2. Left ventricular chamber dimension is normal. 3. Left ventricular systolic function is normal, estimated at 60-65. 4. E/e' 8 is minimally elevated. 5. There is mild aortic valve sclerosis. 6. No pulmonary hypertension, estimated pulmonary arterial systolic pressure is 22 mmHg. Left Ventricle E/e' 8 is minimally elevated. Left ventricular chamber dimension is normal. Left ventricular systolic function is normal, estimated at 60-65. The left ventricular diastolic function is grade I diastolic dysfunction. Right Ventricle Right ventricular chamber dimension is normal. Right ventricular systolic function is normal. Left Atria Left atrial chamber dimension is normal. Right Atria Right atrial chamber dimension is normal. Atrial Septum Interatrial septum not well visualized by 2D and agitated saline imaging. Agitated saline injection with and without valsalva maneuver opacified right side cardiac chambers without shunt to left side cardiac chambers. Aortic Valve The aortic valve is trileaflet. There is mild aortic valve sclerosis. There is no aortic valve stenosis. There is no aortic valve regurgitation. Pulmonic Valve There is no pulmonic regurgitation. Mitral Valve There is no mitral valve stenosis. There is no mitral valve regurgitation. Tricuspid Valve There is no tricuspid valve regurgitation. No pulmonary hypertension, estimated pulmonary arterial systolic pressure is 22 mmHg. Pericardium/Pleural There is no pericardial effusion. Inferior Vena Cava Normal inferior vena cava with >50% collapse upon inspiration consistent with normal right atrial pressure, 5 mmHg. Aorta The aortic root size at the sinus of Valsalva is normal. Left Ventricular Outflow Tract Name Value Normal LVOT 2D LVOT Diameter 1.9 cm LVOT Doppler LVOT Peak Velocity 70 cm/s LVOT Peak Gradient 2 mmHg LVOT Mean Gradient 1 mmHg LVOT VTI 19 cm LVOT VTI/AV VTI Ratio 0.7 LVOT Stroke Volume 57 ml LVOT CO 10.0 l/min LVOT CI 5.0 l/min/m2 Pulmonic Valve Name Value Normal PV Doppler PV Peak Velocity 90 cm/s PV Peak Gradient 3 mmHg Mitral Valve Name Value Normal MV Diastolic Function MV E Peak Velocity 53 cm/s MV A Peak Velocity 72 cm/s MV E/A 0.7 MV Decel Time (PW) 223 ms MV Annular TDI MV E/e' (Septal) 8.4 MV E/e' (Lateral) 9.7 MV E/e' (Average) 9.0 Tricuspid Valve Name Value Normal TV Regurgitation Doppler TR Peak Velocity 205 cm/s TR Peak Gradient 17 mmHg Estimated PAP/RSVP RA Pressure 5 mmHg <=5 PA Systolic Pressure 22 mmHg <36 RV Systolic Pressure 22 mmHg <36 TV Annular TDI TV Lateral Shannan s' Velocity 10.4 cm/s >=9.5 Aorta Name Value Normal Ascending Aorta Ao Root Diameter (MM) 3.3 cm Ao Root Diam Index (MM) 1.7 cm/m2 Aortic Valve Name Value Normal AV Doppler AV Peak Velocity 107 cm/s AV Peak Gradient 5 mmHg AV Mean Gradient 3 mmHg AV VTI 28 cm AV Area (Cont Eq VTI) 2.0 cm2 >=3.0 AV Area (Cont Eq Dayday) 1.9 cm2 AV DI (Dayday) 0.65 AV Regurgitation 2D LVOT Area 3.0 cm2 Ventricles Name Value Normal LV Dimensions 2D/MM IVS Diastolic Thickness (2D) 1.1 cm 0.6-1.0 LVID Diastole (2D) 5.1 cm 3.8-5.2 LVIW Diastolic Thickness (2D) 0.9 cm 0.6-0.9 LVID Systole (2D) 3.3 cm 2.2-3.5 LVOT Diameter 1.9 cm LV Mass (2D Cubed) 189.97 g 67.00-162.00 LV Mass Index (2D Cubed) 96 g/m2 43-95 Relative Wall Thickness (2D) 0.37 <=0.42 LV Fractional Shortening/Ejection Fraction 2D/MM LV Fractional Shortening (2D) 34 % 27-45 LV EF (2D Teichholz) 63 % LV Diastolic Volume (4C MOD) 106 ml LV EF (4C MOD) 61 % LV Diastolic Volume (2C MOD) 85 ml LV EF (2C MOD) 62 % LV Diastolic Volume (BP MOD) 98 ml 46-106 LV Diastolic Volume Index (BP MOD) 49 ml/m2 29-61 LV Systolic Volume (BP MOD) 37 ml 14-42 LV Systolic Volume Index (BP MOD) 18 ml/m2 8-24 LV EF (BP MOD) 63 % 54-74 LV Diastolic Length (4C) 7.6 cm LV Systolic Length (4C) 6.1 cm LV Stroke Volume (4C MOD) 65 ml Atria Name Value Normal LA Dimensions LA Dimension (MM) 2.8 cm 2.7-3.8 LA Volume (4C A-L) 39 ml LA Volume (BP A-L) 42 ml RA Dimensions RA Area (4C) 16.0 cm2 <=18.0 Report Signatures
--- NOTE | 2025-02-27 11:02 | P.NEURO_ITS ---
Neurology EEG Report General Information Date of Study: 02/24/25 TEST electroencephalogram DIAGNOSIS passing-out spells with incontinence CONDITION OF RECORDING neurodiagnostic lab EEG NUMBER [id number] CLINICAL HISTORY Patient history of dementia and passing-out spells with incontinence. EEG DESCRIPTION During wakefulness the background activity consists of mixed frequency activity in posterior head region. Significant muscle tension artifact persisted throughout the recording in frontotemporal region. Posterior dominant rhythm in alpha range at 9-10 hertz with anti luciano. Hyperventilation not performed. During photic stimulation the whole body jerk was noted at the onset of photic stimulation However no persistent photo myogenic response was noted. Driving response was seen which appears symmetric. Patient did not progress to stage 2 sleep. She described being confused but cooperative. IMPRESSION this is an essentially normal EEG obtained during awake state. However si gnificant muscle tension artifacts were seen in frontotemporal region throughout the recording which may limit identification of focal abnormalities in these areas. A follow-up study with recording of sleep may be helpful.
== END 2025-02-24 11:56 | disposition home or self-care (01) ==
LOC: ANHNEURO 11:56
PROVIDERS: PCP Nurse Practitioner Adult Health; Visit Provider Psychiatry & Neurology Neurology
DX: I35.0 Nonrheumatic aortic (valve) stenosis (principal); Z87.828 Personal history of other (healed) physical injury and trauma; R55 Syncope and collapse; R32 Unspecified urinary incontinence
CPT/HCPCS: 93306; 95816; 96375